=== PATIENT | female | born 1960 ===

== ENCOUNTER 2022-03-15 21:16 | Inpatient (IN) ==
[2022-03-15] MEDS ORDERED: IPRATROPIUM/ALBUTEROL 3 ML AMPUL.NEB NEB ONE (23:38)
[2022-03-15] MEDS ORDERED: ALBUTEROL SULFATE 2.5 MG/3 ML NEBULIZER ONE (23:39)
[2022-03-16] MEDS ORDERED: MAGNESIUM SULFATE 2 GM/50 ML BAG IV ONE ×2 (00:01→00:03)
[2022-03-16] MEDS ORDERED: ALBUTEROL SULFATE 2.5 MG/3 ML NEBULIZER ONE (00:02)
[2022-03-16] MEDS ORDERED: ALBUTEROL SULFATE 2.5 MG/3 ML NEBULIZER NEB PRN (00:02)
[2022-03-16] MEDS ORDERED: oxyCODONE HCL 5 MG TABLET PO PRN (00:14)
[2022-03-16] MEDS ORDERED: HYDROmorphone 0.5 MG/0.5 ML SYRINGE IV PRN (00:14)
--- NOTE | 2022-03-16 00:31 | Internal Med History&Physical ---
HPI History of Present Illness Patient information: Note initiated : 03/16/22 at 12:31 am Service Date, if different from initiated Date: [] Patient: Yane Segura 61 y/o F admitted on 03/15/22 for COPD Exacerbation. Chief Complaint: [] History of present illness: Ms. Segura is a 61 year old F History of COPD on oxygen at baseline on 3 L, presented to an outside Medical Center in [place] for evaluation of shortness of breath. The patient has not been feeling well for 1 and half weeks, she was seen by her primary provider on 08 March, she was diagnosed with influenza and was given Tamiflu, she notes she completed a 5-day course of Tamiflu, however the medication made her feel a bit off. She noted a symptoms of shortness of breath and cough did not improve, and therefore she was seen in the ED at date and the , at that time she was on 3 to 4 L of oxygen, her symptoms however gradually got worse, her oxygen requirements increased, Patient was eventually requiring BiPAP therapy with increasing oxygen needs. The patient does have history of intubation in the past because of severe COPD exacerbation, given the facility did not have ability to manage BiPAP at night, or mechanically ventilated patient reached out to this facility for transfer. At the time of my evaluation patient was on BiPAP, but she was able to answer questions appropriately, denied any chest pain or chest tightness, admit to having some cough as well as shortness of breath,She denied any nausea vomiting or any bowel or bladder issues. The patient is being admitted to the hospital for further management. Past medical history, history of COPD on oxygen, restless leg syndrome, stress urinary incontinence, osteoporosis, GERD, anxiety and depression.History of GABRIELLE Past surgical history, history of appendectomy, Family history- History of [place] Social history -Smoker, social occasional marijuana denies alcohol Review of Systems Review of systems: CONSTITUTIONAL: No weight loss, fever, chills, weakness or fatigue. HEENT: Eyes: No visual loss, blurred vision, double vision or yellow sclerae. Ears, Nose, Throat: No hearing loss, sneezing, congestion, runny nose or sore throat. SKIN: No rash or itching. CARDIOVASCULAR: No chest pain, chest pressure or chest discomfort. No palpitations or edema. RESPIRATORY: Shortness of breath, cough present GASTROINTESTINAL: No nausea, vomiting or diarrhea or constipation. No abdominal pain or blood in stools No Lynda. GENITOURINARY: Denies Burning on urination. Blood in urine, or foul smelling urine NEUROLOGICAL: No headache, dizziness, syncope, paralysis, tremors, numbness or tingling in the extremities. No change in bowel or bladder control. MUSCULOSKELETAL: No muscle, back pain, joint pain or stiffness. HEMATOLOGIC: No bleeding or bruising. No enlarged nodes PSYCHIATRIC: No depression or anxiety. ENDOCRINOLOGIC: No reports of sweating, cold or heat intolerance. No polyuria or polydipsia. ALLERGIES: No hives, eczema or rhinitis. Skin: No rash, no jaundice, cyanosis or pallor. PFSH [facility] Social History smoking status: Former smoker MEDS/ALLERGIES Home Medications and Allergies Home Medications Medication Instructions Recorded Confirmed Type albuterol sulfate 90 mcg/actuation 2 puff inhalation Q4HP PRN dyspnea 03/16/22 03/16/22 History aerosol inhaler aspirin 81 mg chewable tablet 1 tab PO QDAY 03/16/22 03/16/22 History azithromycin 500 mg tablet 1 tab PO 3XW 03/16/22 03/16/22 History budesonide 0.25 mg/2 mL suspension 0.25 mg inhalation BID 03/16/22 03/16/22 History for nebulization hydroxyzine HCl 25 mg tablet 1 tab PO BIDP PRN Anxiety 03/16/22 03/16/22 History ipratropium 0.5 mg-albuterol 3 mg 1 amp inhalation QID 03/16/22 03/16/22 History (2.5 mg base)/3 mL nebulization soln mirtazapine 15 mg tablet 1 tab PO HS 03/16/22 03/16/22 History oxybutynin chloride 5 mg tablet 1 tab PO TID 03/16/22 03/16/22 History Allergies Allergy/AdvReac Type Severity Reaction Status Date / Time Tetracyclines Allergy Mild Hives Verified 03/16/22 00:12 EXAM Constitutional Vitals: Pulse Resp Pulse Ox O2 Del Method 119 H 24 H 93 03/16/22 00:04 03/16/22 00:04 03/16/22 00:04 03/16/22 00:04 Exam: GENERAL: The patient is a well-developed, well-nourished in no apparent dist ress. Is alert and oriented x3. on bipap VITAL SIGNS: Reviewed and as noted elsewhere. HEENT: Head is normocephalic and atraumatic. Extraocular muscles are intact. Pupils are equal, round, and reactive to light. Nares appeared normal. Mouth appears any without lesions. Mucous membranes are moist. NECK: Normal to inspection, Supple, No lymphadenopathy or thyromegaly. LUNGS: Air entry equal on both sides, with significant decrease in air entry, xenia exp wheeze present. HEART: Regular rate , tachycardic and rhythm normal, S1 and S2 heard, no Gallop, S3 or Rub Noted, No Gross murmur heard. ABDOMEN: Soft, nontender, and nondistended. Positive bowel sounds. No hepatosplenomegaly was noted. EXTREMITIES: No cyanosis, clubbing, rash, lesions or edema. NEUROLOGIC: Cranial nerves II through XII are grossly intact. Motor and Sensory System Grossly Intact PSYCHIATRIC: Normal affect, Normal Mood. Appropriate Behavior. SKIN: No ulceration or wounds noted, No jaundice, No rash noted. DATA Data Completed and Pending Labs: Labs from last 24 hours 03/16/22 03/16/22 03/16/22 00:21 00:21 00:21 WBC Pending RBC Pending Hgb Pending Hct Pending MCV Pending MCH Pending MCHC Pending RDW Pending Plt Count Pending MPV Pending Immature Gran % (Auto) Pending Neut % (Auto) Pending Immature Gran # Pending D-Dimer Pending Sodium Pending Potassium Pending Chloride Pending Carbon Dioxide Pending Anion Gap Pending BUN Pending Creatinine Pending GFR Calculation Pending Glucose Pending Calcium Pending Total Bilirubin Pending AST Pending ALT Pending Alkaline Phosphatase Pending NT-Pro-B Natriuret Pep Pending Total Protein Pending Albumin Pending Globulin Pending Albumin/Globulin Ratio Pending Laboratory Tests 03/16/22 03/16/22 03/16/22 00:28 02:07 02:08 WBC 3.8 L Hgb 12.0 Plt Count 261 D-Dimer 0.94 H POC VBG pH 7.57 H POC VBG pCO2 at Temp 44.3 POC VBG pO2 167 H Sodium Carbon Dioxide Creatinine NT-Pro-B Natriuret Pep 03/16/22 02:08 WBC Hgb Plt Count D-Dimer POC VBG pH POC VBG pCO2 at Temp POC VBG pO2 Sodium 145 Carbon Dioxide 37 H Creatinine 0.5 L NT-Pro-B Natriuret Pep 3543.0 H flu/ rsv/covid is negative, mrsa screen is negative. X ray official read pending, A/P Narrative A/P Narrative: Acute hypoxic and hypercapenic resp failure Acute exacerbation of COPD Post influenza (completed tamiflu, now neg) -on bipap at this time, wean down as tolerated -dimer is 0.93, X ray shows some sarrring on the left upper lobe, check CTA r/o PE, -continue iv steroids, duonebs, IV mag, antibiotis (rocephin/doxy) budesonide nebs -if resp condition worsens will intubate the patient. CHF exacerbation ElevateD BNP -not clear if pt has CHF, does not look very volume up -will give one dose of lasix -check echo GABRIELLE -she appears to be a chr co2 retainer 0contine cpap at night once off bipap - Stress Urinary Incontinnece -on oxybutynin, resume GERD -on ppi, continue for now Time Spent With Patient Time: Total time spent is greater than 50% in coordination of care (as documented) at patient's floor/unit and/or counseling patient:
[2022-03-16] MEDS ORDERED: cefTRIAXone 1 GM VIAL ONE (00:39)
[2022-03-16] MEDS ORDERED: LORazepam 2 MG/ML VIAL ONE (00:49)
[2022-03-16] MEDS: LORazepam 2 MG/ML VIAL IV PRN ×2 (00:53→15:02)
[2022-03-16] MEDS: cefTRIAXone 2 GM in DEXTROSE 5% IN WATER 50 ML IV SCH ×2 (00:53→16:10)
[2022-03-16] MEDS ORDERED: IPRATROPIUM/ALBUTEROL 3 ML AMPUL.NEB NEB ONE (02:25)
[2022-03-16] MEDS: IPRATROPIUM/ALBUTEROL 3 ML AMPUL.NEB NEB SCH ×4 (03:01→15:27)
[2022-03-16 03:08] LABS: Basophils # (Auto) 0 K/mcL (0.00-0.30); Basophils % (Auto) 0 % (0.0-2.0); Eosinophils # (Auto) 0 K/mcL (0.00-0.70); Eosinophils % (Auto) 0 % (0.0-7.0); Hematocrit 37.1 % (34.1-44.9); Lymphocytes # (Auto) 0.38 K/mcL (1.50-4.80); Lymphocytes % (Auto) 9.9 % (15.5-49.0); Mean Cell Volume 91.6 fL (80.0-100.0); Mean Corpuscular HGB Conc 32.3 g/dL (31.0-36.0); Mean Platelet Volume 10.3 fL (8.8-12.5); Monocytes # (Auto) 0.23 K/mcL (0.10-0.90); Neutrophils % (Auto) 82.3 % (38.0-78.0); Platelet Count 261 K/mcL (140-440); RBC 4.05 M/mcL (3.59-5.38); Red Cell Distribution Width 13.5 % (11.5-14.5); WBC 3.8 K/mcL (4.5-11.0)
[2022-03-16 03:34] LABS: ALT/SGPT 10 U/L (<40); AST/SGOT 11 U/L (<32); Albumin 2.8 gm/dL (3.2-5.2); Albumin/Globulin Ratio 0.8 (1.0-2.3); Alkaline Phosphatase 67 U/L (39-117); Bilirubin,Total < 0.2 mg/dL (0.1-1.0); Blood Urea Nitrogen 18 mg/dL (8-23); Calcium 9.1 mg/dL (8.6-10.4); Carbon Dioxide 37 mmol/L (22-30); Chloride 103 mmol/L (96-108); Globulin 3.4 gm/dL (2.2-3.7); Glomerular Filtration Rate 103; Glucose 146 mg/dL (70-105)
[2022-03-16] MEDS ORDERED: methylPREDNISolone SOD SUCC 40 MG/ML VIAL IV ONE (05:50)
[2022-03-16] MEDS: 0.9 % SODIUM CHLORIDE 10 ML SYRINGE IV SCH ×4 (05:52→23:24)
[2022-03-16] MEDS: methylPREDNISolone SOD SUCC 40 MG/ML VIAL IV SCH ×4 (05:52→23:24)
[2022-03-16] MEDS ORDERED: FUROSEMIDE 40 MG/4 ML VIAL IV ONE (06:47)
[2022-03-16] MEDS: PANTOPRAZOLE 40 MG TABLET PO SCH ×3 (07:14→14:48)
[2022-03-16] MEDS ORDERED: IOPAMIDOL 100 ML BOTTLE IV ONE (07:48)
[2022-03-16] MEDS: BUDESONIDE 0.5 MG/2 ML AMPUL.NEB NEB SCH ×3 (07:48→19:57)
[2022-03-16] MEDS: ASPIRIN 81 MG TAB.CHEW PO SCH ×2 (08:20→14:49)
[2022-03-16] MEDS: DOCUSATE SODIUM 100 MG CAPSULE PO SCH ×3 (08:20→20:29)
[2022-03-16] MEDS: OXYBUTYNIN CHLORIDE 5 MG TABLET PO SCH ×3 (08:20→20:29)
--- NOTE | 2022-03-16 08:43 | Cat Scan Report ---
History: Exacerbation of COPD TECHNIQUE: Following injection of intravenous nonionic contrast the chest was imaged during the pulmonary arterial phase from above the thoracic inlet through the diaphragm. Sagittal and coronal reformats were created along with axial and coronal MIPS. Radiation exposure was limited using dose reduction technology. FINDINGS: Severe emphysema is present throughout both lungs. There is also bronchitis with bronchial wall thickening. In the posterior segment of the left upper lobe there is an ill-defined zone of peripheral consolidation with multiple air bronchograms. There is volume loss and upper retraction of left hilum. Laterally in the left upper lobe there is a large bleb with surrounding scar tissue. The consolidation and inflammation have improved significantly since the prior CT done on 08/16/21. No mass is detected. The pulmonary arteries are normal without evidence of emboli. The heart is normal in size and contour. The aorta is normal in caliber. There are few scattered plaques along the wall of the aorta and in a few of the coronary arteries. No enlarged lymph nodes are present. There is no pleural effusion. There are high attenuation round nodules laterally in the left kidney which are probably cysts containing blood products or proteinaceous debris. The kidneys are only partially visualized. IMPRESSION: Severe emphysema Moderate amount of scar tissue posteriorly and laterally in the left upper lobe causing upward retraction of the left hilum. This has improved. Superimposed residual inflammation cannot be excluded. Bronchitis No evidence of pulmonary emboli Moderate fibrosis causing upward retraction Interpreted and Authenticated by: Yuniel Lombardo 03/16/22
--- NOTE | 2022-03-16 08:52 | XRay Report ---
HISTORY: Exacerbation of COPD, shortness of breath FINDINGS: Patient has severe emphysema with hyperinflated lungs. There is a moderate size spiculated scar centrally in the left upper lobe causing upper and lateral retraction of left hilum. Adjacent to this is mild pleural thickening. There is a chronic finding with little change since 03/14/22. Heart size is normal. There is no congestive heart failure or pleural effusion. IMPRESSION: Stable severe emphysema and scarring in the left upper thorax Interpreted and Authenticated by: Yuniel Lombardo 03/16/22
[2022-03-16] MEDS ORDERED: DOXYCYCLINE HYCLATE 100 MG TABLET.ORL PO SCH (09:00)
[2022-03-16] MEDS: ENOXAPARIN 40 MG/0.4 ML SYRINGE SQ SCH (09:07)
[2022-03-16] MEDS ORDERED: AZITHROMYCIN 500 MG in DEXTROSE 5% IN WATER 250 ML IV SCH (10:00)
[2022-03-16] MEDS: LEVOFLOXACIN 750 MG/150 ML BAG IV SCH (14:35)
[2022-03-16] MEDS: LEVALBUTEROL 1.25 MG/3 ML AMPUL.NEB NEB SCH ×2 (18:07→23:29)
[2022-03-16] MEDS: MIRTAZAPINE 15 MG TABLET PO SCH (20:29)
[2022-03-16] MEDS: SENNOSIDES 1 TABLET PO SCH (20:30)
[2022-03-17] MEDS: 0.9 % SODIUM CHLORIDE 10 ML SYRINGE IV SCH ×3 (05:11→23:34)
[2022-03-17] MEDS: methylPREDNISolone SOD SUCC 40 MG/ML VIAL IV SCH ×3 (05:11→17:39)
[2022-03-17] MEDS: PANTOPRAZOLE 40 MG TABLET PO SCH (07:04)
[2022-03-17 08:02] LABS: Basophils # (Auto) 0 K/mcL (0.00-0.30); Basophils % (Auto) 0 % (0.0-2.0); Eosinophils # (Auto) 0 K/mcL (0.00-0.70); Eosinophils % (Auto) 0 % (0.0-7.0); Hematocrit 36.9 % (34.1-44.9); Hemoglobin 12.1 g/dL (11.2-15.7); Lymphocytes # (Auto) 0.33 K/mcL (1.50-4.80); Lymphocytes % (Auto) 9.5 % (15.5-49.0); Mean Corpuscular HGB Conc 32.8 g/dL (31.0-36.0); Mean Platelet Volume 10.3 fL (8.8-12.5); Monocytes # (Auto) 0.35 K/mcL (0.10-0.90); Neutrophils % (Auto) 79.1 % (38.0-78.0); Platelet Count 281 K/mcL (140-440); Red Cell Distribution Width 13.4 % (11.5-14.5); WBC 3.5 K/mcL (4.5-11.0)
[2022-03-17] MEDS: LEVALBUTEROL 1.25 MG/3 ML AMPUL.NEB NEB SCH ×5 (08:03→23:30)
[2022-03-17] MEDS: BUDESONIDE 0.5 MG/2 ML AMPUL.NEB NEB SCH ×3 (08:03→21:35)
[2022-03-17 08:36] LABS: ALT/SGPT 11 U/L (<40); AST/SGOT 10 U/L (<32); Albumin 3.2 gm/dL (3.2-5.2); Albumin/Globulin Ratio 1.1 (1.0-2.3); Alkaline Phosphatase 64 U/L (39-117); Bilirubin,Direct < 0.2 mg/dL (0-0.3); Bilirubin,Total 0.2 mg/dL (0.1-1.0); Blood Urea Nitrogen 26 mg/dL (8-23); Calcium 9.3 mg/dL (8.6-10.4); Carbon Dioxide 42 mmol/L (22-30); Chloride 95 mmol/L (96-108); Globulin 2.9 gm/dL (2.2-3.7); Glomerular Filtration Rate 97; Glucose 125 mg/dL (70-105); Lactate Dehydrogenase 159 U/L (135-225); Phosphorous 2.8 mg/dL (2.5-4.5); Triglycerides 108 mg/dL (<150); Uric Acid 3.6 mg/dL (2.5-8.0)
[2022-03-17] MEDS: DOCUSATE SODIUM 100 MG CAPSULE PO SCH ×2 (08:57→20:59)
[2022-03-17] MEDS: ASPIRIN 81 MG TAB.CHEW PO SCH (08:57)
[2022-03-17] MEDS: cefTRIAXone 2 GM in DEXTROSE 5% IN WATER 50 ML IV SCH (08:57)
[2022-03-17] MEDS: ENOXAPARIN 40 MG/0.4 ML SYRINGE SQ SCH (08:57)
[2022-03-17] MEDS: OXYBUTYNIN CHLORIDE 5 MG TABLET PO SCH ×3 (08:57→20:59)
[2022-03-17] MEDS: LEVOFLOXACIN 750 MG/150 ML BAG IV SCH (09:39)
[2022-03-17] MEDS: LORazepam 2 MG/ML VIAL IV PRN ×2 (11:57→18:50)
[2022-03-17] MEDS ORDERED: 0.9 % SODIUM CHLORIDE 500 ML IV ONE (14:15)
--- NOTE | 2022-03-17 15:50 | Internal Med Progress Note ---
SUBJECTIVE Subjective Patient information: Note initiated : 03/17/22 at 3:45 pm Service Date, if different from initiated Date: [] Patient: Yane Segura 61 y/o F admitted on 03/15/22 for COPD Exacerbation. Chief Complaint: [] Interval history: 03/17 Respiratory status improved, the patient was on heated high flow nasal cannula overnight. Continues to have sinus tachycardia today, no cause of tachycardia identified. Low normal blood pressures so will give a IV fluid bolus to see if tachycardia improves with some fluid. Physical exam Head: Atraumatic, normal inspection. Eyes: normal appearance, no scleral icterus. Neck: full ROM Respiratory: Heated and humidified high flow nasal cannula oxygen, accessory muscle use, no wheezing Cardiovascular: Regular tachycardia, S1, S2. GI/Abdominal: soft, nontender, no guarding. Extremities: full range of motion, nontender. Neurological: CN II-XII intact, intact motor, intact sensation. Psychiatric: normal mood. Skin: warm, normal color Constitutional Vitals: Vital Signs Temp Pulse Resp BP Pulse Ox O2 Del Method O2 Flow Rate 97.7 F 117 H 18 103/71 95 15 03/17/22 12:01 03/17/22 14:00 03/17/22 14:00 03/17/22 14:00 03/17/22 14:00 03/17/22 12:20 03/17/22 12:20 Period Temp Pulse Resp BP Sys/Pereira Pulse Ox O2 Del Method O2 Flow Rate Last 24 Hr 97.0 F-98.2 F 94-142 13-29 90-127/58-82 90-98 BiPAP-High Flow Nasal Cannula 10-15 Intake and Output 03/17/22 03/17/22 03/17/22 03:59 11:59 19:59 Intake Total 200 450 240 Output Total 375 500 Balance 200 75 -260 Weight 65.317 kg 65.317 kg Patient Weight 03/18/22 03:59 Weight 65.317 kg Intake & Output: Intake & Output 03/17/22 03/17/22 03/17/22 03:59 11:59 19:59 Intake Total 200 450 240 Output Total 375 500 Balance 200 75 -260 Weight 65.317 kg 65.317 kg Intake: Nourishment/Supplement quantity 200 (ml) IV 200 Rocephin 2 gm In Dextrose 5% in 50 Water 50 ml @ 100 mls/hr IV Q24H [facility] Rx#:[id number] Oral 250 240 Output: Urine Catheter Amount 375 500 Other: Meal Nourishment/Supplement Nourishment/Supplement name enusre Urine Appearance Clear Clear Uretheral ([place]) Clear Clear Urine Color Yellow Bright Yellow Uretheral ([place]) Bright Yellow Yellow Urine Odor Normal Normal Uretheral ([place]) Normal OBJ DATA Labs CBC & Chem 7: 03/17/22 07:38 03/17/22 07:38 Labs: Abnormal Lab Results 03/17/22 03/17/22 03/17/22 07:38 07:38 07:38 WBC 3.5 L Immature Gran % (Auto) 1.4 H Neut % (Auto) 79.1 H Lymph % (Auto) 9.5 L Lymph # (Auto) 0.33 L Immature Gran # D-Dimer POC VBG pH 7.51 H POC VBG pCO2 at Temp 59.5 H POC VBG pO2 69 H POC VBG HCO3 47.6 H* POC VBG Total CO2 49.0 H* POC Venous O2 Sat 94.0 H POC VBG Base Excess 25.0 H* VBG Lactic Acid 0.4 L Chloride 95 L Carbon Dioxide 42 H* Anion Gap 4.0 L BUN 26 H Creatinine Glucose 125 H NT-Pro-B Natriuret Pep Albumin Albumin/Globulin Ratio 03/16/22 03/16/22 03/16/22 11:11 02:08 02:08 WBC Immature Gran % (Auto) Neut % (Auto) Lymph % (Auto) Lymph # (Auto) Immature Gran # D-Dimer 0.94 H POC VBG pH POC VBG pCO2 at Temp 83.9 H* POC VBG pO2 POC VBG HCO3 52.8 H* POC VBG Total CO2 > 50.0 H* POC Venous O2 Sat POC VBG Base Excess 28.0 H* VBG Lactic Acid Chloride Carbon Dioxide 37 H Anion Gap 5.0 L BUN Creatinine 0.5 L Glucose 146 H NT-Pro-B Natriuret Pep 3543.0 H Albumin 2.8 L Albumin/Globulin Ratio 0.8 L 03/16/22 03/16/22 02:07 00:28 WBC 3.8 L Immature Gran % (Auto) 1.8 H Neut % (Auto) 82.3 H Lymph % (Auto) 9.9 L Lymph # (Auto) 0.38 L Immature Gran # 0.07 H D-Dimer POC VBG pH 7.57 H POC VBG pCO2 at Temp POC VBG pO2 167 H POC VBG HCO3 40.9 H* POC VBG Total CO2 42.0 H* POC Venous O2 Sat 100.0 H POC VBG Base Excess 19.0 H* VBG Lactic Acid Chloride Carbon Dioxide Anion Gap BUN Creatinine Glucose NT-Pro-B Natriuret Pep Albumin Albumin/Globulin Ratio Meds: Medications Acetaminophen (Acetaminophen 325 Mg Tablet) 650 mg PO Q6HP PRN; Protocol PRN Reason: Per Pain Protocol/Fever > 101 Albuterol Sulfate (Albuterol Sulfate 2.5 Mg/3 Ml Nebulizer) 2.5 mg NEB Q2HP PRN PRN Reason: Shortness Of Breath Or Wheezing Aspirin (Aspirin 81 Mg Tab.Chew) 81 mg PO DAILY [facility] Last Admin: 03/17/22 08:57 Dose: 81 mg Budesonide (Budesonide 0.5 Mg/2 Ml Ampul.Neb) 0.5 mg NEB Q12 [facility] Last Admin: 03/17/22 08:03 Dose: 0.5 mg Docusate Sodium (Docusate Sodium 100 Mg Capsule) 100 mg PO BID [facility] Last Admin: 03/17/22 08:57 Dose: 100 mg Enoxaparin Sodium (Enoxaparin 40 Mg/0.4 Ml Syringe) 40 mg SQ DAILY [facility] Last Admin: 03/17/22 08:57 Dose: 40 mg Hydromorphone HCl (Hydromorphone 0.5 Mg/0.5 Ml Syringe) 0.5 mg IV Q2HP PRN; Protocol PRN Reason: Per Pain Protocol Hydroxyzine HCl (Hydroxyzine 25 Mg Tablet) 25 mg PO BIDP PRN PRN Reason: Anxiety Levofloxacin (Levaquin) 750 mg in 150 mls @ 100 mls/hr IV Q24H [facility] Stop: 03/20/22 11:29 Last Infusion: 03/17/22 11:10 Dose: Infused Levalbuterol HCl (Levalbuterol 1.25 Mg/3 Ml Ampul.Neb) 1.25 mg NEB [id number] [facility] Last Admin: 03/17/22 15:42 Dose: 1.25 mg Lorazepam (Lorazepam 2 Mg/Ml Vial) 0.5 mg IV Q4HP PRN PRN Reason: ANXIETY/SEDATION Last Admin: 03/17/22 11:57 Dose: 0.5 mg Methylprednisolone Sodium Succinate (Methylprednisolone Sod Succ 40 Mg/Ml Vial) 40 mg IV Q6 [facility] Last Admin: 03/17/22 11:57 Dose: 40 mg Mirtazapine (Mirtazapine 15 Mg Tablet) 15 mg PO HS [facility] Last Admin: 03/16/22 20:29 Dose: 15 mg Ondansetron HCl (Ondansetron 4 Mg/2 Ml Vial) 4 mg IV Q6HP PRN PRN Reason: Nausea And Vomiting Oxybutynin Chloride (Oxybutynin Chloride 5 Mg Tablet) 5 mg PO TID [facility] Last Admin: 03/17/22 15:29 Dose: 5 mg Oxycodone HCl (Oxycodone Hcl 5 Mg Tablet) 5 mg PO Q4HP PRN; Protocol PRN Reason: Per Pain Protocol Pantoprazole Sodium (Pantoprazole 40 Mg Tablet) 40 mg PO QAMAC [facility] Last Admin: 03/17/22 07:04 Dose: 40 mg Senna (Sennosides 1 Tablet) 2 tab PO HS [facility] Last Admin: 03/16/22 20:30 Dose: 2 tab Sodium Chloride (0.9 % Sodium Chloride 10 Ml Syringe) 10 ml IV Q8 [facility] Last Admin: 03/17/22 15:31 Dose: 10 ml Trazodone HCl (Trazodone Hcl 50 Mg Tablet) 50 mg PO HSP PRN PRN Reason: Insomnia A/P Narrative A/P Narrative: Acute hypoxic and hypercapnic resp failure Acute exacerbation of COPD Post influenza (completed tamiflu, now neg) -Clinically improved since admission. -High flow nasal cannula during daytime, CPAP at bedtime. -CTA chest did not show any evidence of PE. -continue iv steroids, duonebs, IV mag, antibiotis (rocephin/doxy) budesonide nebs Sinus tachycardia -Patient says she has had tachycardia in the past -No evidence of PE, no evidence of systolic or diastolic dysfunction on TTE. -IV fluid 500 mL NS bolus challenge, monitor heart rate. GABRIELLE -she appears to be a chr co2 retainer -CPAP at bedtime Stress Urinary Incontinnece -on oxybutynin GERD -on ppi, continue for now Time Spent With Patient Time: Total time spent is greater than 50% in coordination of care (as documented) at patient's floor/unit and/or counseling patient:
[2022-03-17] MEDS: ONDANSETRON 4 MG/2 ML VIAL IV PRN (18:44)
[2022-03-17] MEDS: SENNOSIDES 1 TABLET PO SCH (20:58)
[2022-03-17] MEDS: MIRTAZAPINE 15 MG TABLET PO SCH (20:59)
[2022-03-18] MEDS: methylPREDNISolone SOD SUCC 40 MG/ML VIAL IV SCH ×3 (00:52→12:20)
[2022-03-18] MEDS: 0.9 % SODIUM CHLORIDE 10 ML SYRINGE IV SCH ×3 (05:35→21:38)
[2022-03-18] MEDS: BUDESONIDE 0.5 MG/2 ML AMPUL.NEB NEB SCH ×2 (07:06→19:15)
[2022-03-18] MEDS: LEVALBUTEROL 1.25 MG/3 ML AMPUL.NEB NEB SCH ×5 (07:06→23:15)
[2022-03-18] MEDS: ASPIRIN 81 MG TAB.CHEW PO SCH (09:01)
[2022-03-18] MEDS: OXYBUTYNIN CHLORIDE 5 MG TABLET PO SCH ×3 (09:01→21:37)
[2022-03-18] MEDS: ENOXAPARIN 40 MG/0.4 ML SYRINGE SQ SCH (09:01)
[2022-03-18] MEDS: DOCUSATE SODIUM 100 MG CAPSULE PO SCH ×2 (09:02→21:38)
[2022-03-18] MEDS: hydrOXYzine 25 MG TABLET PO PRN (09:17)
[2022-03-18] MEDS: PANTOPRAZOLE 40 MG TABLET PO SCH (09:17)
[2022-03-18] MEDS: LEVOFLOXACIN 750 MG/150 ML BAG IV SCH (09:48)
[2022-03-18] MEDS ORDERED: 0.9 % SODIUM CHLORIDE 1,000 ML IV ONE (11:59)
[2022-03-18 13:59] LABS: Anion Gap 0 (8.0-16.0); Blood Urea Nitrogen 28 mg/dL (8-23); Calcium 8.4 mg/dL (8.6-10.4); Carbon Dioxide 44 mmol/L (22-30); Chloride 97 mmol/L (96-108); Glomerular Filtration Rate 110; Glucose 105 mg/dL (70-105); Phosphorous 2.5 mg/dL (2.5-4.5)
--- NOTE | 2022-03-18 15:09 | Internal Med Progress Note ---
SUBJECTIVE Subjective Patient information: Note initiated : 03/18/22 at 3:02 pm Service Date, if different from initiated Date: [] Patient: Yane Segura 61 y/o F admitted on 03/15/22 for COPD Exacerbation. Chief Complaint: [] Interval history: 03/17 Respiratory status improved, the patient was on heated high flow nasal cannula overnight. Continues to have sinus tachycardia today, no cause of tachycardia identified. Low normal blood pressures so will give a IV fluid bolus to see if tachycardia improves with some fluid. 03/18 Heart rate continues to be elevated, did improve yesterday with a 500 mL bolus so ordered a 1 mL bolus today. Serum bicarbonate level trending up, will check a VBG. The patient has been on heated high flow nasal cannula most of the time. Appears comfortable. Transition to prednisone, discontinued IV Solu-Medrol. Physical exam Head: Atraumatic, normal inspection. Eyes: normal appearance, no scleral icterus. Neck: full ROM Respiratory: Heated and humidified high flow nasal cannula oxygen, accessory muscle use, no wheezing Cardiovascular: Regular tachycardia, S1, S2. GI/Abdominal: soft, nontender, no guarding. Extremities: full range of motion, nontender. Neurological: CN II-XII intact, intact motor, intact sensation. Psychiatric: normal mood. Skin: warm, normal color Constitutional Vitals: Vital Signs Temp Pulse Resp BP Pulse Ox O2 Del Method O2 Flow Rate 98.4 F 107 H 18 99/61 98 25 03/18/22 12:00 03/18/22 13:00 03/18/22 14:01 03/18/22 14:01 03/18/22 13:00 03/18/22 14:00 03/18/22 08:16 Period Temp Pulse Resp BP Sys/Pereira Pulse Ox O2 Del Method O2 Flow Rate Last 24 Hr 97.2 F-99 F 94-144 15-30 81-114/55-78 91-98 BiPAP-Heated High Flow Nasal Ca 15-25 Intake and Output 03/18/22 03/18/22 03/18/22 03:59 11:59 19:59 Intake Total 450 1000 Output Total 600 Balance -150 1000 Weight 64.637 kg Intake & Output: Intake & Output 03/18/22 03/18/22 03/18/22 03:59 11:59 19:59 Intake Total 450 1000 Output Total 600 Balance -150 1000 Weight 64.637 kg Intake: IV 150 1000 Sodium Chloride 0.9% 1,000 ml @ 1000 Wide Open IV BOLUS ONE Rx#: [id number] Oral 300 Output: Urine Catheter Amount 600 Other: Meal Breakfast Percent of Meal Consumed 50% Feeding Ability Assist with Tray Set Up Urine Appearance Clear Uretheral ([place]) Clear Urine Color Bright Yellow Uretheral ([place]) Yellow OBJ DATA Labs CBC & Chem 7: 03/17/22 07:38 03/18/22 12:35 Labs: Abnormal Lab Results 03/18/22 03/17/22 03/17/22 12:35 07:38 07:38 WBC 3.5 L Immature Gran % (Auto) 1.4 H Neut % (Auto) 79.1 H Lymph % (Auto) 9.5 L Lymph # (Auto) 0.33 L Immature Gran # D-Dimer POC VBG pH 7.51 H POC VBG pCO2 at Temp 59.5 H POC VBG pO2 69 H POC VBG HCO3 47.6 H* POC VBG Total CO2 49.0 H* POC Venous O2 Sat 94.0 H POC VBG Base Excess 25.0 H* VBG Lactic Acid 0.4 L Chloride Carbon Dioxide 44 H* Anion Gap 0 L BUN 28 H Creatinine 0.4 L Glucose Calcium 8.4 L NT-Pro-B Natriuret Pep Albumin 3.0 L Albumin/Globulin Ratio 03/17/22 03/16/22 03/16/22 07:38 11:11 02:08 WBC Immature Gran % (Auto) Neut % (Auto) Lymph % (Auto) Lymph # (Auto) Immature Gran # D-Dimer POC VBG pH POC VBG pCO2 at Temp 83.9 H* POC VBG pO2 POC VBG HCO3 52.8 H* POC VBG Total CO2 > 50.0 H* POC Venous O2 Sat POC VBG Base Excess 28.0 H* VBG Lactic Acid Chloride 95 L Carbon Dioxide 42 H* 37 H Anion Gap 4.0 L 5.0 L BUN 26 H Creatinine 0.5 L Glucose 125 H 146 H Calcium NT-Pro-B Natriuret Pep 3543.0 H Albumin 2.8 L Albumin/Globulin Ratio 0.8 L 03/16/22 03/16/22 03/16/22 02:08 02:07 00:28 WBC 3.8 L Immature Gran % (Auto) 1.8 H Neut % (Auto) 82.3 H Lymph % (Auto) 9.9 L Lymph # (Auto) 0.38 L Immature Gran # 0.07 H D-Dimer 0.94 H POC VBG pH 7.57 H POC VBG pCO2 at Temp POC VBG pO2 167 H POC VBG HCO3 40.9 H* POC VBG Total CO2 42.0 H* POC Venous O2 Sat 100.0 H POC VBG Base Excess 19.0 H* VBG Lactic Acid Chloride Carbon Dioxide Anion Gap BUN Creatinine Glucose Calcium NT-Pro-B Natriuret Pep Albumin Albumin/Globulin Ratio Meds: Medications Acetaminophen (Acetaminophen 325 Mg Tablet) 650 mg PO Q6HP PRN; Protocol PRN Reason: Per Pain Protocol/Fever > 101 Albuterol Sulfate (Albuterol Sulfate 2.5 Mg/3 Ml Nebulizer) 2.5 mg NEB Q2HP PRN PRN Reason: Shortness Of Breath Or Wheezing Aspirin (Aspirin 81 Mg Tab.Chew) 81 mg PO DAILY [facility] Last Admin: 03/18/22 09:01 Dose: 81 mg Budesonide (Budesonide 0.5 Mg/2 Ml Ampul.Neb) 0.5 mg NEB Q12 YASH Last Admin: 03/18/22 07:06 Dose: 0.5 mg Docusate Sodium (Docusate Sodium 100 Mg Capsule) 100 mg PO BID [facility] Last Admin: 03/18/22 09:02 Dose: 100 mg Enoxaparin Sodium (Enoxaparin 40 Mg/0.4 Ml Syringe) 40 mg SQ DAILY [facility] Last Admin: 03/18/22 09:01 Dose: 40 mg Hydromorphone HCl (Hydromorphone 0.5 Mg/0.5 Ml Syringe) 0.5 mg IV Q2HP PRN; Protocol PRN Reason: Per Pain Protocol Hydroxyzine HCl (Hydroxyzine 25 Mg Tablet) 25 mg PO BIDP PRN PRN Reason: Anxiety Last Admin: 03/18/22 09:17 Dose: 25 mg Levofloxacin (Levaquin) 750 mg in 150 mls @ 100 mls/hr IV Q24H [facility] Stop: 03/20/22 11:29 Last Infusion: 03/18/22 11:37 Dose: Infused Levalbuterol HCl (Levalbuterol 1.25 Mg/3 Ml Ampul.Neb) 1.25 mg NEB [id number] [facility] Last Admin: 03/18/22 11:39 Dose: 1.25 mg Lorazepam (Lorazepam 2 Mg/Ml Vial) 0.5 mg IV Q4HP PRN PRN Reason: ANXIETY/SEDATION Last Admin: 03/17/22 18:50 Dose: 0.5 mg Mirtazapine (Mirtazapine 15 Mg Tablet) 15 mg PO [facility] Last Admin: 03/17/22 20:59 Dose: 15 mg Ondansetron HCl (Ondansetron 4 Mg/2 Ml Vial) 4 mg IV Q6HP PRN PRN Reason: Nausea And Vomiting Last Admin: 03/17/22 18:44 Dose: 4 mg Oxybutynin Chloride (Oxybutynin Chloride 5 Mg Tablet) 5 mg PO TID [facility] Last Admin: 03/18/22 13:40 Dose: 5 mg Oxycodone HCl (Oxycodone Hcl 5 Mg Tablet) 5 mg PO Q4HP PRN; Protocol PRN Reason: Per Pain Protocol Last Admin: 03/17/22 20:59 Dose: 5 mg Pantoprazole Sodium (Pantoprazole 40 Mg Tablet) [address] [facility] Last Admin: 03/18/22 09:17 Dose: 40 mg Prednisone (Prednisone 20 Mg Tablet) 40 mg PO [facility] Senna (Sennosides 1 Tablet) 2 tab PO [facility] Last Admin: 03/17/22 20:58 Dose: 2 tab Sodium Chloride (0.9 % Sodium Chloride 10 Ml Syringe) 10 ml IV Q8 [facility] Last Admin: 03/18/22 13:04 Dose: 10 ml Trazodone HCl (Trazodone Hcl 50 Mg Tablet) 50 mg PO HSP PRN PRN Reason: Insomnia A/P Narrative A/P Narrative: Assessment: 61-year-old female with a history of COPD on oxygen, GABRIELLE on CPAP, GERD, stress urinary incontinence who recently had influenza that was treated with Tamiflu directly admitted from an outside Medical Center in [place] for hypoxic and hypercapnic respiratory failure secondary to a COPD exacerbation. CTA chest showed severe emphysematous changes, no PE. TTE showed LVEF 55 to 60%, normal right ventricular size and function, no valvulopathy. #Acute on chronic hypoxic respiratory failure #Acute on chronic hypercapnic respiratory failure #COPD exacerbation with severe COPD at baseline #Recent influenza infection #Sinus tachycardia #Obstructive sleep apnea on CPAP #GERD #Stress urinary incontinence #Generalized weakness Plan -Start prednisone 40 mg daily, discontinue Solu-Medrol IV. -Scheduled Xopenex, as needed albuterol nebs. -Monitor venous blood gas periodically until medically stable for recurrent CO2 retention. -Levofloxacin IV, complete 5 days. -Completed Tamiflu treatment. -IV fluid today. -Ativan IV as needed for anxiety. -Continue home aspirin, Remeron, oxybutynin. -pvc monitor, continuous pulse oximetry. -Regular diet. -PT and OT consult. -DVT prophylaxis: Lovenox -CODE STATUS: Full -Disposition: Probably low intensity rehab. Time Spent With Patient Time: Total time spent is greater than 50% in coordination of care (as documented) at patient's floor/unit and/or counseling patient:
[2022-03-18 16:13] LABS: ABG Methemoglobin 0.4 % (0.4-1.5); Total Hemoglobin 13.4 gm/Dl (12.0-15.0); VBG Base Excess 10 (-2-3); VBG HCO3 38.1 mmol/L (24.0-28.0); VBG Oxygen Saturation 93.9 % (40.0-70.0); VBG PCO2 68.9 mmHg (41.0-51.0); VBG PH 7.36 U (7.32-7.42); VBG PO2 149.5 mmHg (25.0-40.0); VBG Total CO2 40.3 mmol/L (25.0-29.0)
[2022-03-18] MEDS: MIRTAZAPINE 15 MG TABLET PO SCH (21:37)
[2022-03-18] MEDS: SENNOSIDES 1 TABLET PO SCH (21:38)
[2022-03-19] MEDS ORDERED: fentaNYL 100 MCG/2 ML VIAL IV ONE (00:15)
[2022-03-19] MEDS: 0.9 % SODIUM CHLORIDE 10 ML SYRINGE IV SCH ×3 (05:52→21:18)
[2022-03-19] MEDS: LEVALBUTEROL 1.25 MG/3 ML AMPUL.NEB NEB SCH ×5 (07:05→22:45)
[2022-03-19] MEDS: BUDESONIDE 0.5 MG/2 ML AMPUL.NEB NEB SCH ×2 (07:06→19:00)
[2022-03-19 07:30] LABS: Albumin 2.7 gm/dL (3.2-5.2); Blood Urea Nitrogen 20 mg/dL (8-23); Calcium 8.4 mg/dL (8.6-10.4); Carbon Dioxide 44 mmol/L (22-30); Chloride 99 mmol/L (96-108); Glomerular Filtration Rate 110; Glucose 84 mg/dL (70-105)
[2022-03-19] MEDS: ENOXAPARIN 40 MG/0.4 ML SYRINGE SQ SCH (08:02)
[2022-03-19] MEDS: DOCUSATE SODIUM 100 MG CAPSULE PO SCH ×2 (08:03→21:17)
[2022-03-19] MEDS: OXYBUTYNIN CHLORIDE 5 MG TABLET PO SCH ×3 (08:03→21:17)
[2022-03-19] MEDS: ASPIRIN 81 MG TAB.CHEW PO SCH (08:03)
[2022-03-19] MEDS: PANTOPRAZOLE 40 MG TABLET PO SCH (08:03)
[2022-03-19] MEDS: predniSONE 20 MG TABLET PO SCH (08:03)
[2022-03-19] MEDS: hydrOXYzine 25 MG TABLET PO PRN (08:14)
[2022-03-19 09:49] LABS: ABG Methemoglobin 0.3 % (0.4-1.5); Total Hemoglobin 14.2 gm/Dl (12.0-15.0); VBG Base Excess 13 (-2-3); VBG HCO3 40.6 mmol/L (24.0-28.0); VBG Oxygen Saturation 91.7 % (40.0-70.0); VBG PH 7.41 U (7.32-7.42); VBG PO2 112.2 mmHg (25.0-40.0); VBG Total CO2 42.6 mmol/L (25.0-29.0)
[2022-03-19] MEDS: LEVOFLOXACIN 750 MG/150 ML BAG IV SCH (10:41)
[2022-03-19] MEDS: ACETAMINOPHEN 325 MG TABLET PO PRN (12:26)
--- NOTE | 2022-03-19 13:50 | Internal Med Progress Note ---
SUBJECTIVE Subjective Patient information: Note initiated : 03/19/22 at 1:47 pm Service Date, if different from initiated Date: [] Patient: Yane Segura 61 y/o F admitted on 03/15/22 for COPD Exacerbation. Chief Complaint: [] Interval history: 03/17 Respiratory status improved, the patient was on heated high flow nasal cannula overnight. Continues to have sinus tachycardia today, no cause of tachycardia identified. Low normal blood pressures so will give a IV fluid bolus to see if tachycardia improves with some fluid. 03/18 Heart rate continues to be elevated, did improve yesterday with a 500 mL bolus so ordered a 1 mL bolus today. Serum bicarbonate level trending up, will check a VBG. The patient has been on heated high flow nasal cannula most of the time. Appears comfortable. Transition to prednisone, discontinued IV Solu-Medrol. 03/19 No significant events overnight, weaned back to 3 L/min nasal cannula oxygen which is about the patient's baseline oxygen requirement. VBG shows persistently elevated carbon dioxide, will try BiPAP this afternoon for a few hours and see if the patient's energy levels improve with BiPAP. Also transition to BiPAP at night which the patient uses at home. Heart rate in the low 100s. Physical exam Head: Atraumatic, normal inspection. Eyes: normal appearance, no scleral icterus. Neck: full ROM Respiratory: Nasal cannula oxygen supplementation, does not appear to be in respiratory distress. Cardiovascular: Regular tachycardia, S1, S2. GI/Abdominal: soft, nontender, no guarding. Extremities: full range of motion, nontender. Neurological: CN II-XII intact, intact motor, intact sensation. Psychiatric: normal mood. Skin: warm, normal color Constitutional Vitals: Vital Signs Temp Pulse Resp BP Pulse Ox O2 Del Method O2 Flow Rate 98.5 F 106 H 22 118/72 95 3 03/19/22 12:00 03/19/22 12:48 03/19/22 12:48 03/19/22 12:00 03/19/22 12:48 03/19/22 12:00 03/19/22 12:00 Period Temp Pulse Resp BP Sys/Pereira Pulse Ox O2 Del Method O2 Flow Rate Last 24 Hr 97.2 F-98.8 F 85-121 15-24 88-121/57-72 87-96 Heated High Flow Nasal Ca-Nasal Cannula 3-25 Intake and Output 03/19/22 03/19/22 03/19/22 03:59 11:59 19:59 Intake Total 450 640 270 Output Total 913 000 9288 Balance -375 85 930 Weight 65 kg Intake & Output: Intake & Output 03/19/22 03/19/22 03/19/22 03:59 11:59 19:59 Intake Total 450 640 270 Output Total 356 495 7772 Balance -375 85 930 Weight 65 kg Intake: IV 150 Oral 450 640 120 Output: Urine Catheter Amount [phone] Other: Meal Breakfast Lunch Percent of Meal Consumed 100% 50% Feeding Ability Assist with Tray Set Up Independent Urine Appearance Clear Clear Clear Uretheral ([place]) Clear Clear Urine Color Yellow Yellow Pale Bright Yellow Uretheral ([place]) Yellow Yellow Urine Odor Normal Normal Normal OBJ DATA Labs CBC & Chem 7: 03/17/22 07:38 03/19/22 05:19 Labs: Abnormal Lab Results 03/19/22 03/19/22 03/18/22 09:21 05:19 15:47 WBC Immature Gran % (Auto) Neut % (Auto) Lymph % (Auto) Lymph # (Auto) ABG Methemoglobin 0.3 L POC VBG pH VBG pCO2 65.0 H* 68.9 H* POC VBG pCO2 at Temp VBG pO2 112.2 H 149.5 H POC VBG pO2 VBG HCO3 40.6 H* 38.1 H POC VBG HCO3 VBG Total CO2 42.6 H* 40.3 H POC VBG Total CO2 VBG O2 Saturation 91.7 H 93.9 H POC Venous O2 Sat VBG Base Excess 13 H 10 H POC VBG Base Excess VBG Lactic Acid Carboxyhemoglobin 6.4 H 4.4 H Chloride Carbon Dioxide 44 H* Anion Gap -3.0 L BUN Creatinine 0.4 L Glucose Calcium 8.4 L Phosphorus 2.0 L Albumin 2.7 L 03/18/22 03/17/22 03/17/22 12:35 07:38 07:38 WBC 3.5 L Immature Gran % (Auto) 1.4 H Neut % (Auto) 79.1 H Lymph % (Auto) 9.5 L Lymph # (Auto) 0.33 L ABG Methemoglobin POC VBG pH 7.51 H VBG pCO2 POC VBG pCO2 at Temp 59.5 H VBG pO2 POC VBG pO2 69 H VBG HCO3 POC VBG HCO3 47.6 H* VBG Total CO2 POC VBG Total CO2 49.0 H* VBG O2 Saturation POC Venous O2 Sat 94.0 H VBG Base Excess POC VBG Base Excess 25.0 H* VBG Lactic Acid 0.4 L Carboxyhemoglobin Chloride Carbon Dioxide 44 H* Anion Gap 0 L BUN 28 H Creatinine 0.4 L Glucose Calcium 8.4 L Phosphorus Albumin 3.0 L 03/17/22 07:38 WBC Immature Gran % (Auto) Neut % (Auto) Lymph % (Auto) Lymph # (Auto) ABG Methemoglobin POC VBG pH VBG pCO2 POC VBG pCO2 at Temp VBG pO2 POC VBG pO2 VBG HCO3 POC VBG HCO3 VBG Total CO2 POC VBG Total CO2 VBG O2 Saturation POC Venous O2 Sat VBG Base Excess POC VBG Base Excess VBG Lactic Acid Carboxyhemoglobin Chloride 95 L Carbon Dioxide 42 H* Anion Gap 4.0 L BUN 26 H Creatinine Glucose 125 H Calcium Phosphorus Albumin Meds: Medications Acetaminophen (Acetaminophen 325 Mg Tablet) 650 mg PO Q6HP PRN; Protocol PRN Reason: Per Pain Protocol/Fever > 101 Last Admin: 03/19/22 12:26 Dose: 650 mg Albuterol Sulfate (Albuterol Sulfate 2.5 Mg/3 Ml Nebulizer) 2.5 mg NEB Q2HP PRN PRN Reason: Shortness Of Breath Or Wheezing Aspirin (Aspirin 81 Mg Tab.Chew) 81 mg PO DAILY [facility] Last Admin: 03/19/22 08:03 Dose: 81 mg Budesonide (Budesonide 0.5 Mg/2 Ml Ampul.Neb) 0.5 mg NEB Q12 [facility] Last Admin: 03/19/22 07:06 Dose: 0.5 mg Docusate Sodium (Docusate Sodium 100 Mg Capsule) 100 mg PO BID [facility] Last Admin: 03/19/22 08:03 Dose: 100 mg Enoxaparin Sodium (Enoxaparin 40 Mg/0.4 Ml Syringe) 40 mg SQ DAILY [facility] Last Admin: 03/19/22 08:02 Dose: 40 mg Hydromorphone HCl (Hydromorphone 0.5 Mg/0.5 Ml Syringe) 0.5 mg IV Q2HP PRN; Protocol PRN Reason: Per Pain Protocol Hydroxyzine HCl (Hydroxyzine 25 Mg Tablet) 25 mg PO BIDP PRN PRN Reason: Anxiety Last Admin: 03/19/22 08:14 Dose: 25 mg Levofloxacin (Levaquin) 750 mg in 150 mls @ 100 mls/hr IV Q24H [facility] Stop: 03/20/22 11:29 Last Infusion: 03/19/22 12:11 Dose: Infused Levalbuterol HCl (Levalbuterol 1.25 Mg/3 Ml Ampul.Neb) 1.25 mg NEB [id number] [facility] Last Admin: 03/19/22 11:01 Dose: 1.25 mg Lorazepam (Lorazepam 2 Mg/Ml Vial) 0.5 mg IV Q4HP PRN PRN Reason: ANXIETY/SEDATION Last Admin: 03/17/22 18:50 Dose: 0.5 mg Mirtazapine (Mirtazapine 15 Mg Tablet) [address] [facility] Last Admin: 03/18/22 21:37 Dose: 15 mg Ondansetron HCl (Ondansetron 4 Mg/2 Ml Vial) 4 mg IV Q6HP PRN PRN Reason: Nausea And Vomiting Last Admin: 03/17/22 18:44 Dose: 4 mg Oxybutynin Chloride (Oxybutynin Chloride 5 Mg Tablet) 5 mg PO TID [facility] Last Admin: 03/19/22 08:03 Dose: 5 mg Oxycodone HCl (Oxycodone Hcl 5 Mg Tablet) 5 mg PO Q4HP PRN; Protocol PRN Reason: Per Pain Protocol Last Admin: 03/17/22 20:59 Dose: 5 mg Pantoprazole Sodium ([facility] 40 Mg Tablet) [facility] Last Admin: 03/19/22 08:03 Dose: 40 mg Prednisone (Prednisone 20 Mg Tablet) 40 mg PO QAC [facility] Last Admin: 03/19/22 08:03 Dose: 40 mg Senna (Sennosides 1 Tablet) [address] [facility] Last Admin: 03/18/22 21:38 Dose: 2 tab Sodium Chloride (0.9 % Sodium Chloride 10 Ml Syringe) 10 ml IV Q8 [facility] Last Admin: 03/19/22 05:52 Dose: 10 ml Trazodone HCl (Trazodone Hcl 50 Mg Tablet) 50 mg PO HSP PRN PRN Reason: Insomnia ABG Interpretation ABG results: 03/18/22 03/19/22 15:47 09:21 ABG Methemoglobin 0.4 0.3 L VBG pH 7.36 7.41 VBG pCO2 68.9 H* 65.0 H* VBG pO2 149.5 H 112.2 H VBG HCO3 38.1 H 40.6 H* VBG Total CO2 40.3 H 42.6 H* VBG O2 Saturation 93.9 H 91.7 H VBG Base Excess 10 H 13 H A/P Narrative A/P Narrative: Assessment: 61-year-old female with a history of COPD on oxygen, GABRIELLE on CPAP, GERD, stress urinary incontinence who recently had influenza that was treated with Tamiflu directly admitted from an outside Medical Center in [place] for hypoxic and hypercapnic respiratory failure secondary to a COPD exacerbation. CTA chest showed severe emphysematous changes, no PE. TTE showed LVEF 55 to 60%, normal right ventricular size and function, no valvulopathy. #Acute on chronic hypoxic respiratory failure #Acute on chronic hypercapnic respiratory failure #COPD exacerbation with severe COPD at baseline #Recent influenza infection #Sinus tachycardia #Obstructive sleep apnea on CPAP #GERD #Stress urinary incontinence #Generalized weakness Plan -Continue prednisone 40 mg daily followed by taper. -Scheduled Xopenex, as needed albuterol nebs. -Nasal cannula oxygen supplementation. -BiPAP at nighttime and as needed during daytime. -Levofloxacin 750 mg IV, complete 5 days. -Completed Tamiflu treatment. -Ativan IV as needed for anxiety. -Continue home aspirin, Remeron, oxybutynin. -shirt hemmer, continuous pulse oximetry. -Regular diet. -PT and OT consult. -DVT prophylaxis: Lovenox -CODE STATUS: Full -Disposition: Probably low intensity rehab. Time Spent With Patient Time: Total time spent is greater than 50% in coordination of care (as documented) at patient's floor/unit and/or counseling patient:
[2022-03-19 20:11] LABS: ABG Methemoglobin 0.2 % (0.4-1.5); Total Hemoglobin 14.2 gm/Dl (12.0-15.0); VBG Base Excess 14 (-2-3); VBG HCO3 40.8 mmol/L (24.0-28.0); VBG Oxygen Saturation 93.3 % (40.0-70.0); VBG PH 7.44 U (7.32-7.42); VBG PO2 138.9 mmHg (25.0-40.0); VBG Total CO2 42.7 mmol/L (25.0-29.0)
[2022-03-19] MEDS: traZODone HCL 50 MG TABLET PO PRN (21:17)
[2022-03-19] MEDS: MIRTAZAPINE 15 MG TABLET PO SCH (21:17)
[2022-03-19] MEDS: SENNOSIDES 1 TABLET PO SCH (21:17)
[2022-03-20] MEDS: 0.9 % SODIUM CHLORIDE 10 ML SYRINGE IV SCH ×3 (05:55→20:25)
[2022-03-20 06:44] LABS: Albumin 2.9 gm/dL (3.2-5.2); Calcium 8.4 mg/dL (8.6-10.4); Phosphorous 2.2 mg/dL (2.5-4.5)
[2022-03-20] MEDS: BUDESONIDE 0.5 MG/2 ML AMPUL.NEB NEB SCH ×2 (07:04→19:38)
[2022-03-20] MEDS: LEVALBUTEROL 1.25 MG/3 ML AMPUL.NEB NEB SCH ×5 (07:05→23:50)
[2022-03-20] MEDS: DOCUSATE SODIUM 100 MG CAPSULE PO SCH ×2 (08:07→20:25)
[2022-03-20] MEDS: ASPIRIN 81 MG TAB.CHEW PO SCH (08:07)
[2022-03-20] MEDS: OXYBUTYNIN CHLORIDE 5 MG TABLET PO SCH ×3 (08:07→20:25)
[2022-03-20] MEDS: predniSONE 20 MG TABLET PO SCH (08:07)
[2022-03-20] MEDS: PANTOPRAZOLE 40 MG TABLET PO SCH (08:07)
[2022-03-20] MEDS: ENOXAPARIN 40 MG/0.4 ML SYRINGE SQ SCH (08:07)
--- NOTE | 2022-03-20 10:16 | Internal Med Progress Note ---
SUBJECTIVE Subjective Patient information: Note initiated : 03/20/22 at 10:14 am Service Date, if different from initiated Date: [] Patient: Yane Segura 61 y/o F admitted on 03/15/22 for COPD Exacerbation. Chief Complaint: [] Interval history: 03/17 Respiratory status improved, the patient was on heated high flow nasal cannula overnight. Continues to have sinus tachycardia today, no cause of tachycardia identified. Low normal blood pressures so will give a IV fluid bolus to see if tachycardia improves with some fluid. 03/18 Heart rate continues to be elevated, did improve yesterday with a 500 mL bolus so ordered a 1 mL bolus today. Serum bicarbonate level trending up, will check a VBG. The patient has been on heated high flow nasal cannula most of the time. Appears comfortable. Transition to prednisone, discontinued IV Solu-Medrol. 03/19 No significant events overnight, weaned back to 3 L/min nasal cannula oxygen which is about the patient's baseline oxygen requirement. VBG shows persistently elevated carbon dioxide, will try BiPAP this afternoon for a few hours and see if the patient's energy levels improve with BiPAP. Also transition to BiPAP at night which the patient uses at home. Heart rate in the low 100s. 03/20 No significant events overnight, on 3 L nasal cannula oxygen supplementation. Tolerated BiPAP well last night. Transfer to [facility] status. Tentative plan to discharge to low intensity rehab tomorrow pending bed availability. Physical exam Head: Atraumatic, normal inspection. Eyes: normal appearance, no scleral icterus. Neck: full ROM Respiratory: Nasal cannula oxygen supplementation, does not appear to be in respiratory distress. Cardiovascular: Regular tachycardia, S1, S2. GI/Abdominal: soft, nontender, no guarding. Extremities: full range of motion, nontender. Neurological: CN II-XII intact, intact motor, intact sensation. Psychiatric: normal mood. Skin: warm, normal color Constitutional Vitals: Vital Signs Temp Pulse Resp BP Pulse Ox O2 Del Method O2 Flow Rate 97.6 F 110 H 19 104/72 90 3 03/20/22 08:00 03/20/22 10:00 03/20/22 10:00 03/20/22 10:00 03/20/22 10:00 03/20/22 10:03/20/22 10:00 Period Temp Pulse Resp BP Sys/Pereira Pulse Ox O2 Del Method O2 Flow Rate Last 24 Hr 96.8 F-98.6 F 86-113 16-24 82-132/59-100 90-98 BiPAP-Nasal Cannula 3-3 Intake and Output 03/19/22 03/20/22 03/20/22 19:59 03:59 11:59 Intake Total 1350 490 Output Total 1825 375 Balance -475 115 Weight 64.002 kg Intake & Output: Intake & Output 03/19/22 03/20/22 03/20/22 19:59 03:59 11:59 Intake Total 1350 490 Output Total 1825 375 Balance -475 115 Weight 64.002 kg Intake: Nourishment/Supplement quantity 480 240 (ml) IV 150 Oral 720 250 Output: Urine Catheter Amount 1200 375 Void Amount 625 Other: Meal Dinner Breakfast Percent of Meal Consumed 100% 100% Feeding Ability Independent Nourishment/Supplement name Ensure Ensure Urine Appearance Clear Clear Clear Uretheral ([place]) Clear Urine Color Bright Yellow Yellow Yellow Pale Pale Uretheral ([place]) Yellow Urine Odor Normal Normal Normal OBJ DATA Labs CBC & Chem 7: 03/17/22 07:38 03/20/22 05:31 Labs: Abnormal Lab Results 03/20/22 03/19/22 03/19/22 05:31 19:49 09:21 ABG Methemoglobin 0.2 L 0.3 L VBG pH 7.44 H VBG pCO2 62.0 H* 65.0 H* VBG pO2 138.9 H 112.2 H VBG HCO3 40.8 H* 40.6 H* VBG Total CO2 42.7 H* 42.6 H* VBG O2 Saturation 93.3 H 91.7 H VBG Base Excess 14 H 13 H Carboxyhemoglobin 5.3 H 6.4 H Chloride 94 L Carbon Dioxide 42 H* Anion Gap 2.0 L BUN Creatinine 0.4 L Calcium 8.4 L Phosphorus 2.2 L Albumin 2.9 L 03/19/22 03/18/22 03/18/22 05:19 15:47 12:35 ABG Methemoglobin VBG pH VBG pCO2 68.9 H* VBG pO2 149.5 H VBG HCO3 38.1 H VBG Total CO2 40.3 H VBG O2 Saturation 93.9 H VBG Base Excess 10 H Carboxyhemoglobin 4.4 H Chloride Carbon Dioxide 44 H* 44 H* Anion Gap -3.0 L 0 L BUN 28 H Creatinine 0.4 L 0.4 L Calcium 8.4 L 8.4 L Phosphorus 2.0 L Albumin 2.7 L 3.0 L Meds: Medications Acetaminophen (Acetaminophen 325 Mg Tablet) 650 mg PO Q6HP PRN; Protocol PRN Reason: Per Pain Protocol/Fever > 101 Last Admin: 03/19/22 12:26 Dose: 650 mg Albuterol Sulfate (Albuterol Sulfate 2.5 Mg/3 Ml Nebulizer) 2.5 mg NEB Q2HP PRN PRN Reason: Shortness Of Breath Or Wheezing Aspirin (Aspirin 81 Mg Tab.Chew) 81 mg PO DAILY [facility] Last Admin: 03/20/22 08:07 Dose: 81 mg Budesonide (Budesonide 0.5 Mg/2 Ml Ampul.Neb) 0.5 mg NEB Q12 [facility] Last Admin: 03/20/22 07:04 Dose: 0.5 mg Docusate Sodium (Docusate Sodium 100 Mg Capsule) 100 mg PO BID [facility] Last Admin: 03/20/22 08:07 Dose: 100 mg Enoxaparin Sodium (Enoxaparin 40 Mg/0.4 Ml Syringe) 40 mg SQ DAILY [facility] Last Admin: 03/20/22 08:07 Dose: 40 mg Hydromorphone HCl (Hydromorphone 0.5 Mg/0.5 Ml Syringe) 0.5 mg IV Q2HP PRN; Protocol PRN Reason: Per Pain Protocol Hydroxyzine HCl (Hydroxyzine 25 Mg Tablet) 25 mg PO BIDP PRN PRN Reason: Anxiety Last Admin: 03/19/22 08:14 Dose: 25 mg Levofloxacin (Levaquin) 750 mg in 150 mls @ 100 mls/hr IV Q24H [facility] Stop: 03/20/22 11:29 Last Infusion: 03/19/22 12:11 Dose: Infused Levalbuterol HCl (Levalbuterol 1.25 Mg/3 Ml Ampul.Neb) 1.25 mg NEB [id number] [facility] Last Admin: 03/20/22 07:05 Dose: 1.25 mg Lorazepam (Lorazepam 2 Mg/Ml Vial) 0.5 mg IV Q4HP PRN PRN Reason: ANXIETY/SEDATION Last Admin: 03/17/22 18:50 Dose: 0.5 mg Mirtazapine (Mirtazapine 15 Mg Tablet) 15 mg PO [facility] Last Admin: 03/19/22 21:17 Dose: 15 mg Ondansetron HCl (Ondansetron 4 Mg/2 Ml Vial) 4 mg IV Q6HP PRN PRN Reason: Nausea And Vomiting Last Admin: 03/17/22 18:44 Dose: 4 mg Oxybutynin Chloride (Oxybutynin Chloride 5 Mg Tablet) 5 mg PO TID [facility] Last Admin: 03/20/22 08:07 Dose: 5 mg Oxycodone HCl (Oxycodone Hcl 5 Mg Tablet) 5 mg PO Q4HP PRN; Protocol PRN Reason: Per Pain Protocol Last Admin: 03/17/22 20:59 Dose: 5 mg Pantoprazole Sodium (Pantoprazole 40 Mg Tablet) 40 mg PO [facility] Last Admin: 03/20/22 08:07 Dose: 40 mg Prednisone (Prednisone 20 Mg Tablet) 40 mg PO [facility] Last Admin: 03/20/22 08:07 Dose: 40 mg Senna (Sennosides 1 Tablet) 2 tab PO [facility] Last Admin: 03/19/22 21:17 Dose: 2 tab Sodium Chloride (0.9 % Sodium Chloride 10 Ml Syringe) 10 ml IV Q8 [facility] Last Admin: 03/20/22 05:55 Dose: 10 ml Trazodone HCl (Trazodone Hcl 50 Mg Tablet) 50 mg PO [facility] PRN PRN Reason: Insomnia Last Admin: 03/19/22 21:17 Dose: 50 mg ABG Interpretation ABG results: 03/18/22 03/19/22 03/19/22 15:47 09:21 19:49 ABG Methemoglobin 0.4 0.3 L 0.2 L VBG pH 7.36 7.41 7.44 H VBG pCO2 68.9 H* 65.0 H* 62.0 H* VBG pO2 149.5 H 112.2 H 138.9 H VBG HCO3 38.1 H 40.6 H* 40.8 H* VBG Total CO2 40.3 H 42.6 H* 42.7 H* VBG O2 Saturation 93.9 H 91.7 H 93.3 H VBG Base Excess 10 H 13 H 14 H A/P Narrative A/P Narrative: Assessment: 61-year-old female with a history of COPD on oxygen, GABRIELLE on CPAP, GERD, stress urinary incontinence who recently had influenza that was treated with Tamiflu directly admitted from an outside Medical Center in [place] for hypoxic and hypercapnic respiratory failure secondary to a COPD exacerbation. CTA chest showed severe emphysematous changes, no PE. TTE showed LVEF 55 to 60%, normal right ventricular size and function, no valvulopathy. #Acute on chronic hypoxic respiratory failure #Acute on chronic hypercapnic respiratory failure #COPD exacerbation with severe COPD at baseline #Recent influenza infection #Sinus tachycardia #Obstructive sleep apnea on CPAP #GERD #Stress urinary incontinence #Generalized weakness #Guarded prognosis Plan -Continue prednisone 40 mg daily followed by taper. -Scheduled Xopenex, as needed albuterol nebs. -The patient says she does not tolerate DuoNebs well. -Nasal cannula oxygen supplementation. -BiPAP at nighttime and as needed during daytime. -Levofloxacin 750 mg IV, complete 5 days. -Holding home azithromycin, will resume after completing levofloxacin. -Completed Tamiflu treatment. -Ativan IV as needed for anxiety. -Continue home aspirin, Remeron, oxybutynin. 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 -Regular diet. -PT and OT consult. -DVT prophylaxis: Lovenox -CODE STATUS: Full -Disposition: Probably low intensity rehab. Hospice would be appropriate as the patient has COPD that is oxygen dependent and likely progressing to be BiPAP dependent. Time Spent With Patient Time: Total time spent is greater than 50% in coordination of care (as documented) at patient's floor/unit and/or counseling patient:
[2022-03-20] MEDS: LEVOFLOXACIN 750 MG/150 ML BAG IV SCH (10:20)
[2022-03-20] MEDS: hydrOXYzine 25 MG TABLET PO PRN ×2 (11:27→20:28)
[2022-03-20] MEDS: traZODone HCL 50 MG TABLET PO PRN (20:25)
[2022-03-20] MEDS: SENNOSIDES 1 TABLET PO SCH (20:25)
[2022-03-20] MEDS: MIRTAZAPINE 15 MG TABLET PO SCH (20:25)
[2022-03-21] MEDS: 0.9 % SODIUM CHLORIDE 10 ML SYRINGE IV SCH ×3 (04:33→20:54)
[2022-03-21 07:04] LABS: Albumin 2.7 gm/dL (3.2-5.2); Blood Urea Nitrogen 22 mg/dL (8-23); Calcium 8.5 mg/dL (8.6-10.4); Carbon Dioxide 42 mmol/L (22-30); Chloride 95 mmol/L (96-108); Glomerular Filtration Rate 110; Glucose 85 mg/dL (70-105); Phosphorous 2.3 mg/dL (2.5-4.5)
[2022-03-21] MEDS: BUDESONIDE 0.5 MG/2 ML AMPUL.NEB NEB SCH ×2 (07:25→21:27)
[2022-03-21] MEDS: LEVALBUTEROL 1.25 MG/3 ML AMPUL.NEB NEB SCH (07:25)
[2022-03-21] MEDS: PANTOPRAZOLE 40 MG TABLET PO SCH (07:49)
[2022-03-21] MEDS: OXYBUTYNIN CHLORIDE 5 MG TABLET PO SCH ×3 (08:42→20:53)
[2022-03-21] MEDS: DOCUSATE SODIUM 100 MG CAPSULE PO SCH ×2 (08:42→20:53)
[2022-03-21] MEDS: ASPIRIN 81 MG TAB.CHEW PO SCH (08:42)
[2022-03-21] MEDS: predniSONE 20 MG TABLET PO SCH (08:42)
[2022-03-21] MEDS: ENOXAPARIN 40 MG/0.4 ML SYRINGE SQ SCH (08:42)
[2022-03-21] MEDS: IPRATROPIUM/ALBUTEROL 3 ML AMPUL.NEB NEB SCH ×4 (11:00→21:27)
--- NOTE | 2022-03-21 11:45 | Internal Med Progress Note ---
SUBJECTIVE Subjective Patient information: Note initiated : 03/21/22 at 11:42 am Service Date, if different from initiated Date: [] Patient: Yane Segura 61 y/o F admitted on 03/15/22 for COPD Exacerbation. Chief Complaint: [] Interval history: 03/17 Respiratory status improved, the patient was on heated high flow nasal cannula overnight. Continues to have sinus tachycardia today, no cause of tachycardia identified. Low normal blood pressures so will give a IV fluid bolus to see if tachycardia improves with some fluid. 03/18 Heart rate continues to be elevated, did improve yesterday with a 500 mL bolus so ordered a 1 mL bolus today. Serum bicarbonate level trending up, will check a VBG. The patient has been on heated high flow nasal cannula most of the time. Appears comfortable. Transition to prednisone, discontinued IV Solu-Medrol. 03/19 No significant events overnight, weaned back to 3 L/min nasal cannula oxygen which is about the patient's baseline oxygen requirement. VBG shows persistently elevated carbon dioxide, will try BiPAP this afternoon for a few hours and see if the patient's energy levels improve with BiPAP. Also transition to BiPAP at night which the patient uses at home. Heart rate in the low 100s. 03/20 No significant events overnight, on 3 L nasal cannula oxygen supplementation. Tolerated BiPAP well last night. Transfer to [facility] status. Tentative plan to discharge to low intensity rehab tomorrow pending bed availability. 03/21 Stable overnight, transition to duo nebs today, discontinued scheduled Xopenex. We will see if the patient tolerates DuoNebs, she has been having some issues with that at home. Prior to admission, the patient was on scheduled DuoNebs and albuterol metered-dose inhaler as needed. Continue BiPAP at night and during the daytime as needed. Waiting for final authorization for low intensity rehab at [facility] bed. Physical exam Head: Atraumatic, normal inspection. Eyes: normal appearance, no scleral icterus. Neck: full ROM Respiratory: Nasal cannula oxygen supplementation, does not appear to be in respiratory distress. Cardiovascular: Regular rate and rhythm, S1, S2. GI/Abdominal: soft, nontender, no guarding. Extremities: full range of motion, nontender. Neurological: CN II-XII intact, intact motor, intact sensation. Psychiatric: normal mood. Skin: warm, normal color Constitutional Vitals: Vital Signs Temp Pulse Resp BP Pulse Ox O2 Del Method O2 Flow Rate 98.5 F 88 16 97/62 98 3 03/21/22 08:00 03/21/22 11:01 03/21/22 11:01 03/21/22 08:00 03/21/22 08:00 03/21/22 11:01 03/21/22 11:01 Period Temp Pulse Resp BP Sys/Pereira Pulse Ox O2 Del Method O2 Flow Rate Last 24 Hr 97.3 F-98.8 F 81-114 12-24 88-110/50-70 92-100 BiPAP-Nasal Cannula, Bubble Humidifier 3-3 Intake and Output 03/20/22 03/21/22 03/21/22 19:59 03:59 11:59 Intake Total 350 650 540 Output Total 251 201 Balance 99 449 540 Weight 62.823 kg Intake & Output: Intake & Output 03/20/22 03/21/22 03/21/22 19:59 03:59 11:59 Intake Total 350 650 540 Output Total 251 201 Balance 99 449 540 Weight 62.823 kg Intake: Nourishment/Supplement quantity 180 (ml) IV 150 Oral 650 360 GI Tube Flush 200 Output: Void Amount 250 200 # of times incontinent of urine 1 1 Other: Meal Breakfast Percent of Meal Consumed 50% Feeding Ability Assist with Tray Set Up Nourishment/Supplement name Ensure Urine Appearance Clear Clear Urine Color Yellow Yellow Stool Size Moderate Stool Color Brown Stool Consistency Formed # Voids 1 # Bowel Movements 1 OBJ DATA Labs CBC & Chem 7: 03/17/22 07:38 03/21/22 05:24 Labs: Abnormal Lab Results 03/21/22 03/20/22 03/19/22 05:24 05:31 19:49 ABG Methemoglobin 0.2 L VBG pH 7.44 H VBG pCO2 62.0 H* VBG pO2 138.9 H VBG HCO3 40.8 H* VBG Total CO2 42.7 H* VBG O2 Saturation 93.3 H VBG Base Excess 14 H Carboxyhemoglobin 5.3 H Chloride 95 L 94 L Carbon Dioxide 42 H* 42 H* Anion Gap 1.0 L 2.0 L BUN Creatinine 0.4 L 0.4 L Calcium 8.5 L 8.4 L Phosphorus 2.3 L 2.2 L Albumin 2.7 L 2.9 L 03/19/22 03/19/22 03/18/22 09:21 05:19 15:47 ABG Methemoglobin 0.3 L VBG pH VBG pCO2 65.0 H* 68.9 H* VBG pO2 112.2 H 149.5 H VBG HCO3 40.6 H* 38.1 H VBG Total CO2 42.6 H* 40.3 H VBG O2 Saturation 91.7 H 93.9 H VBG Base Excess 13 H 10 H Carboxyhemoglobin 6.4 H 4.4 H Chloride Carbon Dioxide 44 H* Anion Gap -3.0 L BUN Creatinine 0.4 L Calcium 8.4 L Phosphorus 2.0 L Albumin 2.7 L 03/18/22 12:35 ABG Methemoglobin VBG pH VBG pCO2 VBG pO2 VBG HCO3 VBG Total CO2 VBG O2 Saturation VBG Base Excess Carboxyhemoglobin Chloride Carbon Dioxide 44 H* Anion Gap 0 L BUN 28 H Creatinine 0.4 L Calcium 8.4 L Phosphorus Albumin 3.0 L Meds: Medications Acetaminophen (Acetaminophen 325 Mg Tablet) 650 mg PO Q6HP PRN; Protocol PRN Reason: Per Pain Protocol/Fever > 101 Last Admin: 03/19/22 12:26 Dose: 650 mg Albuterol Sulfate (Albuterol Sulfate 2.5 Mg/3 Ml Nebulizer) 2.5 mg NEB Q2HP PRN PRN Reason: Shortness Of Breath Or Wheezing Albuterol/Ipratropium (Ipratropium/Albuterol 3 Ml Ampul.Neb) 3 ml NEB QID [facility] Last Admin: 03/21/22 11:00 Dose: 3 ml Aspirin (Aspirin 81 Mg Tab.Chew) 81 mg PO DAILY [facility] Last Admin: 03/21/22 08:42 Dose: 81 mg Budesonide (Budesonide 0.5 Mg/2 Ml Ampul.Neb) 0.5 mg NEB Q12 [facility] Last Admin: 03/21/22 07:25 Dose: 0.5 mg Docusate Sodium (Docusate Sodium 100 Mg Capsule) 100 mg PO BID [facility] Last Admin: 03/21/22 08:42 Dose: 100 mg Enoxaparin Sodium (Enoxaparin 40 Mg/0.4 Ml Syringe) 40 mg SQ DAILY [facility] Last Admin: 03/21/22 08:42 Dose: 40 mg Hydromorphone HCl (Hydromorphone 0.5 Mg/0.5 Ml Syringe) 0.5 mg IV Q2HP PRN; Protocol PRN Reason: Per Pain Protocol Hydroxyzine HCl (Hydroxyzine 25 Mg Tablet) 25 mg PO BIDP PRN PRN Reason: Anxiety Last Admin: 03/20/22 20:28 Dose: 25 mg Lorazepam (Lorazepam 2 Mg/Ml Vial) 0.5 mg IV Q4HP PRN PRN Reason: ANXIETY/SEDATION Last Admin: 03/17/22 18:50 Dose: 0.5 mg Mirtazapine (Mirtazapine 15 Mg Tablet) 15 mg PO [facility] Last Admin: 03/20/22 20:25 Dose: 15 mg Ondansetron HCl (Ondansetron 4 Mg/2 Ml Vial) 4 mg IV Q6HP PRN PRN Reason: Nausea And Vomiting Last Admin: 03/17/22 18:44 Dose: 4 mg Oxybutynin Chloride (Oxybutynin Chloride 5 Mg Tablet) 5 mg PO TID [facility] Last Admin: 03/21/22 08:42 Dose: 5 mg Oxycodone HCl (Oxycodone Hcl 5 Mg Tablet) 5 mg PO Q4HP PRN; Protocol PRN Reason: Per Pain Protocol Last Admin: 03/17/22 20:59 Dose: 5 mg Pantoprazole Sodium ([facility] 40 Mg [facility]t) [facility] Last Admin: 03/21/22 07:49 Dose: 40 mg Prednisone (Prednisone 20 Mg Tablet) 40 mg PO [facility] Last Admin: 03/21/22 08:42 Dose: 40 mg Senna (Sennosides 1 Tablet) 2 tab PO [facility] Last Admin: 03/20/22 20:25 Dose: 2 tab Sodium Chloride (0.9 % Sodium Chloride 10 Ml Syringe) 10 ml IV Q8 [facility] Last Admin: 03/21/22 04:33 Dose: 10 ml Trazodone HCl (Trazodone Hcl 50 Mg Tablet) 50 mg PO [facility] PRN PRN Reason: Insomnia Last Admin: 03/20/22 20:25 Dose: 50 mg ABG Interpretation ABG results: 03/18/22 03/19/22 03/19/22 15:47 09:21 19:49 ABG Methemoglobin 0.4 0.3 L 0.2 L VBG pH 7.36 7.41 7.44 H VBG pCO2 68.9 H* 65.0 H* 62.0 H* VBG pO2 149.5 H 112.2 H 138.9 H VBG HCO3 38.1 H 40.6 H* 40.8 H* VBG Total CO2 40.3 H 42.6 H* 42.7 H* VBG O2 Saturation 93.9 H 91.7 H 93.3 H VBG Base Excess 10 H 13 H 14 H A/P Narrative A/P Narrative: Assessment: 61-year-old female with a history of COPD on oxygen, GABRIELLE on CPAP, GERD, stress urinary incontinence who recently had influenza that was treated with Tamiflu directly admitted from an outside Medical Center in [place] for hypoxic and hypercapnic respiratory failure secondary to a COPD exacerbation. CTA chest showed severe emphysematous changes, no PE. TTE showed LVEF 55 to 60%, normal right ventricular size and function, no valvulopathy. #Acute on chronic hypoxic respiratory failure #Acute on chronic hypercapnic respiratory failure #COPD exacerbation with severe COPD at baseline #Possible community-acquired pneumonia #Recent influenza infection #Sinus tachycardia #Obstructive sleep apnea on CPAP #GERD #Stress urinary incontinence #Generalized weakness #Guarded prognosis Plan -Continue prednisone 40 mg daily followed by taper. -Start scheduled DuoNebs and discontinued scheduled Xopenex. -Albuterol nebs as needed. -Nasal cannula oxygen supplementation. -BiPAP at nighttime and as needed during daytime. -Completed antibiotics for possible CAP. -Completed Tamiflu treatment. -Holding home azithromycin for now given recent antibiotic. -Ativan IV as needed for anxiety. -Continue home aspirin, Remeron, oxybutynin. 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 -Regular diet. -PT and OT consult. -DVT prophylaxis: Lovenox -CODE STATUS: Full -Disposition: Low intensity rehab at [facility] pending final authorization. Time Spent With Patient Time: Total time spent is greater than 50% in coordination of care (as documented) at patient's floor/unit and/or counseling patient:
[2022-03-21] MEDS ORDERED: acetaZOLAMIDE SOD 500 MG VIAL IV ONE (13:29)
--- NOTE | 2022-03-21 13:30 | Internal Med Progress Note ---
SUBJECTIVE Subjective Patient information: Note initiated : 03/21/22 at 1:24 pm Service Date, if different from initiated Date: [] Patient: Yane Segura 61 y/o F admitted on 03/15/22 for COPD Exacerbation. Chief Complaint: [] Interval history: 03/17 Respiratory status improved, the patient was on heated high flow nasal cannula overnight. Continues to have sinus tachycardia today, no cause of tachycardia identified. Low normal blood pressures so will give a IV fluid bolus to see if tachycardia improves with some fluid. 03/18 Heart rate continues to be elevated, did improve yesterday with a 500 mL bolus so ordered a 1 mL bolus today. Serum bicarbonate level trending up, will check a VBG. The patient has been on heated high flow nasal cannula most of the time. Appears comfortable. Transition to prednisone, discontinued IV Solu-Medrol. 03/19 No significant events overnight, weaned back to 3 L/min nasal cannula oxygen which is about the patient's baseline oxygen requirement. VBG shows persistently elevated carbon dioxide, will try BiPAP this afternoon for a few hours and see if the patient's energy levels improve with BiPAP. Also transition to BiPAP at night which the patient uses at home. Heart rate in the low 100s. 03/20 No significant events overnight, on 3 L nasal cannula oxygen supplementation. Tolerated BiPAP well last night. Transfer to [facility] status. Tentative plan to discharge to low intensity rehab tomorrow pending bed availability. 03/21 Stable overnight, transition to duo nebs today, discontinued scheduled Xopenex. We will see if the patient tolerates DuoNebs, she has been having some issues with that at home. Prior to admission, the patient was on scheduled DuoNebs and albuterol metered-dose inhaler as needed. Continue BiPAP at night and during the daytime as needed. Waiting for final authorization for low intensity rehab at [facility]. 03/22 Constitutional Vitals: Vital Signs Temp Pulse Resp BP Pulse Ox O2 Del Method O2 Flow Rate 98.5 F 88 16 97/62 98 3 03/21/22 08:00 03/21/22 11:01 03/21/22 11:01 03/21/22 08:00 03/21/22 08:00 03/21/22 11:01 03/21/22 11:01 Period Temp Pulse Resp BP Sys/Pereira Pulse Ox O2 Del Method O2 Flow Rate Last 24 Hr 97.3 F-98.8 F 81-114 12-24 88-110/50-66 92-100 BiPAP-Nasal Cannula, Bubble Humidifier 3-3 Intake and Output 03/21/22 03/21/22 03/21/22 03:59 11:59 19:59 Intake Total 650 540 240 Output Total 201 200 Balance 449 540 40 Intake & Output: Intake & Output 03/21/22 03/21/22 03/21/22 03:59 11:59 19:59 Intake Total 650 540 240 Output Total 201 200 Balance 449 540 40 Intake: Nourishment/Supplement quantity 180 (ml) Oral 650 360 240 Output: Void Amount 200 200 # of times incontinent of urine 1 Other: Meal Breakfast Lunch Percent of Meal Consumed 50% 75% Feeding Ability Assist with Tray Set Up Assist with Tray Set Up Nourishment/Supplement name Ensure Urine Appearance Clear Urine Color Yellow Stool Size Moderate Small Stool Color Brown Brown Stool Consistency Formed Formed # Bowel Movements 1 1 Exam: General: Alert, Awake, No acute Distress Eyes/N/T: EOMI, Head/Neck: neck supple, CV: RRR, No murmurs, Pulm: b/l, no wheezing/rhonchi/rales. NC o2 Abd: soft, nontender, +BS x4 Ext: no clubbing/cyanosis/edema Neuro: Alert, no focal deficits, moves all extremities, Skin: warm/dry OBJ DATA Labs CBC & Chem 7: 03/17/22 07:38 03/21/22 05:24 Labs: Abnormal Lab Results 03/21/22 03/20/22 03/19/22 05:24 05:31 19:49 ABG Methemoglobin 0.2 L VBG pH 7.44 H VBG pCO2 62.0 H* VBG pO2 138.9 H VBG HCO3 40.8 H* VBG Total CO2 42.7 H* VBG O2 Saturation 93.3 H VBG Base Excess 14 H Carboxyhemoglobin 5.3 H Chloride 95 L 94 L Carbon Dioxide 42 H* 42 H* Anion Gap 1.0 L 2.0 L BUN Creatinine 0.4 L 0.4 L Calcium 8.5 L 8.4 L Phosphorus 2.3 L 2.2 L Albumin 2.7 L 2.9 L 03/19/22 03/19/22 03/18/22 09:21 05:19 15:47 ABG Methemoglobin 0.3 L VBG pH VBG pCO2 65.0 H* 68.9 H* VBG pO2 112.2 H 149.5 H VBG HCO3 40.6 H* 38.1 H VBG Total CO2 42.6 H* 40.3 H VBG O2 Saturation 91.7 H 93.9 H VBG Base Excess 13 H 10 H Carboxyhemoglobin 6.4 H 4.4 H Chloride Carbon Dioxide 44 H* Anion Gap -3.0 L BUN Creatinine 0.4 L Calcium 8.4 L Phosphorus 2.0 L Albumin 2.7 L 03/18/22 12:35 ABG Methemoglobin VBG pH VBG pCO2 VBG pO2 VBG HCO3 VBG Total CO2 VBG O2 Saturation VBG Base Excess Carboxyhemoglobin Chloride Carbon Dioxide 44 H* Anion Gap 0 L BUN 28 H Creatinine 0.4 L Calcium 8.4 L Phosphorus Albumin 3.0 L Meds: Medications Acetaminophen (Acetaminophen 325 Mg Tablet) 650 mg PO Q6HP PRN; Protocol PRN Reason: Per Pain Protocol/Fever > 101 Last Admin: 03/19/22 12:26 Dose: 650 mg Albuterol Sulfate (Albuterol Sulfate 2.5 Mg/3 Ml Nebulizer) 2.5 mg NEB Q2HP PRN PRN Reason: Shortness Of Breath Or Wheezing Albuterol/Ipratropium (Ipratropium/Albuterol 3 Ml Ampul.Neb) 3 ml NEB QID [facility] Last Admin: 03/21/22 11:00 Dose: 3 ml Aspirin (Aspirin 81 Mg Tab.Chew) 81 mg PO DAILY [facility] Last Admin: 03/21/22 08:42 Dose: 81 mg Budesonide (Budesonide 0.5 Mg/2 Ml Ampul.Neb) 0.5 mg NEB Q12 [facility] Last Admin: 03/21/22 07:25 Dose: 0.5 mg Docusate Sodium (Docusate Sodium 100 Mg Capsule) 100 mg PO BID [facility] Last Admin: 03/21/22 08:42 Dose: 100 mg Enoxaparin Sodium (Enoxaparin 40 Mg/0.4 Ml Syringe) 40 mg SQ DAILY [facility] Last Admin: 03/21/22 08:42 Dose: 40 mg Hydromorphone HCl (Hydromorphone 0.5 Mg/0.5 Ml Syringe) 0.5 mg IV Q2HP PRN; Protocol PRN Reason: Per Pain Protocol Hydroxyzine HCl (Hydroxyzine 25 Mg Tablet) 25 mg PO BIDP PRN PRN Reason: Anxiety Last Admin: 03/20/22 20:28 Dose: 25 mg Lorazepam (Lorazepam 2 Mg/Ml Vial) 0.5 mg IV Q4HP PRN PRN Reason: ANXIETY/SEDATION Last Admin: 03/17/22 18:50 Dose: 0.5 mg Mirtazapine (Mirtazapine 15 Mg Tablet) 15 mg PO [facility] Last Admin: 03/20/22 20:25 Dose: 15 mg Ondansetron HCl (Ondansetron 4 Mg/2 Ml Vial) 4 mg IV Q6HP PRN PRN Reason: Nausea And Vomiting Last Admin: 03/17/22 18:44 Dose: 4 mg Oxybutynin Chloride (Oxybutynin Chloride 5 Mg Tablet) 5 mg PO TID [facility] Last Admin: 03/21/22 08:42 Dose: 5 mg Oxycodone HCl (Oxycodone Hcl 5 Mg Tablet) 5 mg PO Q4HP PRN; Protocol PRN Reason: Per Pain Protocol Last Admin: 03/17/22 20:59 Dose: 5 mg Pantoprazole Sodium (Pantoprazole 40 Mg Tablet) 40 mg PO [facility] Last Admin: 03/21/22 07:49 Dose: 40 mg Prednisone (Prednisone 20 Mg Tablet) 40 mg PO [facility] Last Admin: 03/21/22 08:42 Dose: 40 mg Senna (Sennosides 1 Tablet) 2 tab PO [facility] Last Admin: 03/20/22 20:25 Dose: 2 tab Sodium Chloride (0.9 % Sodium Chloride 10 Ml Syringe) 10 ml IV Q8 [facility] Last Admin: 03/21/22 04:33 Dose: 10 ml Trazodone HCl (Trazodone Hcl 50 Mg Tablet) 50 mg PO [facility] PRN PRN Reason: Insomnia Last Admin: 03/20/22 20:25 Dose: 50 mg ABG Interpretation ABG results: 03/18/22 03/19/22 03/19/22 15:47 09:21 19:49 ABG Methemoglobin 0.4 0.3 L 0.2 L VBG pH 7.36 7.41 7.44 H VBG pCO2 68.9 H* 65.0 H* 62.0 H* VBG pO2 149.5 H 112.2 H 138.9 H VBG HCO3 38.1 H 40.6 H* 40.8 H* VBG Total CO2 40.3 H 42.6 H* 42.7 H* VBG O2 Saturation 93.9 H 91.7 H 93.3 H VBG Base Excess 10 H 13 H 14 H A/P Narrative A/P Narrative: A: #Acute on chronic hypoxic/hypercapnic respiratory failure: #COPD ( ) exacerbation with severe COPD at baseline: #Metabolic alkalosis: 2/2 above #Possible community-acquired pneumonia: #Recent influenza infection: #Sinus tachycardia: #GABRIELLE: on CPAP #GERD: #Stress urinary incontinence: #Generalized weakness/Deconditioning: #Guarded prognosis: Plan: -Continue prednisone 40 mg daily followed by taper -Start scheduled DuoNebs and discontinued scheduled Xopenex -Albuterol nebs as needed -d/c on advair or symbicort (start inpt) and f/u referral to Pulmonology -Nasal cannula oxygen supplementation -BiPAP at nighttime and as needed during daytime -Completed antibiotics for possible CAP. -Completed Tamiflu treatment -Holding home azithromycin for now given recent antibiotic. -Ativan IV as needed for anxiety -Continue home aspirin, Remeron, oxybutynin. -school lunch monitor, continuous pulse oximetry -PT and OT consult. -ppx: Lovenox CODE STATUS: Piping Engineer Spent With Patient Time: Total time spent is greater than 50% in coordination of care (as documented) at patient's floor/unit and/or counseling patient:
--- NOTE | 2022-03-21 15:44 | Discharge Summary ---
Discharge Provider Provider IMPORTANT FOLLOW-UP INFORMATION FOR PCP: Patient information: Note initiated : 03/21/22 at 3:43 pm Service Date, if different from initiated Date: [] Patient: Yane Segura 61 y/o F admitted on 03/15/22 for COPD Exacerbation. Chief Complaint: [] Date of admission: 03/15/22 23:29 Discharge date: 03/23/22 Primary care physician: Camille Love COURSE Hospital Course Hospital course: History of present illness: Ms. Segura is a 61 year old F History of COPD on oxygen at baseline on 3 L, presented to an outside Medical Center in [place] for evaluation of shortness of breath. The patient has not been feeling well for 1 and half weeks, she was seen by her primary provider on 08 March, she was diagnosed with influenza and was given Tamiflu, she notes she completed a 5-day course of Tamiflu, however the medication made her feel a bit off. She noted a symptoms of shortness of breath and cough did not improve, and therefore she was seen in the ED at date and the , at that time she was on 3 to 4 L of oxygen, her symptoms however gradually got worse, her oxygen requirements increased, Patient was eventually requiring BiPAP therapy with increasing oxygen needs. The patient does have history of intubation in the past because of severe COPD exacerbation, given the facility did not have ability to manage BiPAP at night, or mechanically ventilated patient reached out to this facility for transfer. At the time of my evaluation patient was on BiPAP, but she was able to answer questions appropriately, denied any chest pain or chest tightness, admit to having some cough as well as shortness of breath,She denied any nausea vomiting or any bowel or bladder issues. The patient is being admitted to the hospital for further management. 03/17 Respiratory status improved, the patient was on heated high flow nasal cannula overnight. Continues to have sinus tachycardia today, no cause of tachycardia identified. Low normal blood pressures so will give a IV fluid bolus to see if tachycardia improves with some fluid. 03/18 Heart rate continues to be elevated, did improve yesterday with a 500 mL bolus so ordered a 1 mL bolus today. Serum bicarbonate level trending up, will check a VBG. The patient has been on heated high flow nasal cannula most of the time. Appears comfortable. Transition to prednisone, discontinued IV Solu- Medrol. 03/19 No significant events overnight, weaned back to 3 L/min nasal cannula oxygen which is about the patient's baseline oxygen requirement. VBG shows persistently elevated carbon dioxide, will try BiPAP this afternoon for a few hours and see if the patient's energy levels improve with BiPAP. Also transition to BiPAP at night which the patient uses at home. Heart rate in the low 100s. 03/20 No significant events overnight, on 3 L nasal cannula oxygen supplementation. Tolerated BiPAP well last night. Transfer to [facility] status. Tentative plan to discharge to low intensity rehab tomorrow pending bed availability. 03/21 Stable overnight, transition to duo nebs today, discontinued scheduled Xopenex. We will see if the patient tolerates DuoNebs, she has been having some issues with that at home. Prior to admission, the patient was on scheduled DuoNebs and albuterol metered-dose inhaler as needed. Continue BiPAP at night and during the daytime as needed. Waiting for final authorization for low intensity rehab at [facility] bed. 03/22 Patient feeling a little bit better gradually. Does have a mild cough and feels shortness of breath is improving. Metabolic alkalosis improved after Diamox yesterday. 03/23 No overnight event or new complaints. Patient doing well and stable for discharge. A: #Acute on chronic hypoxic/hypercapnic respiratory failure: #COPD (3L O2@home) exacerbation with severe COPD at baseline: #Metabolic alkalosis: 2/2 above #Possible community-acquired pneumonia: #Recent influenza infection: #Sinus tachycardia: #GABRIELLE: on CPAP #GERD: #Stress urinary incontinence: #Generalized weakness/Deconditioning: #Guarded prognosis: Plan: -prednisone taper -referral to Pulmonology -ppx: Lovenox Discharge diagnosis: COPD exacerbation acute hypoxic respite failure pneumonia Secondary discharge diagnosis: Influenza metabolic alkalosis sinus tachycardia obstructive sleep apnea GERD generalized weakness deconditioning Time Spent with Patient Time attestation: Total time spent providing and/or coordinating discharge services: Time spent: Greater than 30 minutes EXAM Constitutional Vitals: Temp Pulse Resp BP Pulse Ox O2 Del Method O2 Flow Rate 98.6 F 102 H 20 101/52 98 3 03/21/22 12:00 03/21/22 12:00 03/21/22 12:00 03/21/22 12:00 03/21/22 15:00 03/21/22 15:00 03/21/22 15:00 Discharge Data Data Completed and Pending Labs on day of discharge: Labs from last 24 hours 03/21/22 05:24 Sodium 138 Potassium 4.0 Chloride 95 L Carbon Dioxide 42 H* Anion Gap 1.0 L BUN 22 Creatinine 0.4 L GFR Calculation 110 Glucose 85 Calcium 8.5 L Phosphorus 2.3 L Albumin 2.7 L Discharge Plan Patient/Caregiver Discharge Instructions Activity: increase activity as tolerated Diet: Regular Diet Activity Restrictions/Additional Instructions: Referral to see pulmonology in 1 to 2 weeks for COPD management. Follow-up with PCP in 3 to 7 days. Prescriptions: New prednisone 10 mg tablet 40 mg PO QDAY Qty: 1 0RF Rx Instructions: Take 40mg once daily for 2 days then 20mg daily for 2 days then 10mg daily x2 days then 5mg x2 days and stop Continued ipratropium-albuterol 0.5 mg-3 mg(2.5 mg base)/3 mL solution for nebulization 1 amp INHALATION QID budesonide 0.25 mg/2 mL suspension for nebulization 0.25 mg inhalation BID Label Comments: [NO ORIGINAL SIG] aspirin 81 mg tablet,chewable 1 tab PO QDAY hydroxyzine HCl 25 mg tablet 1 tab PO BIDP PRN (Reason: Anxiety) mirtazapine 15 mg tablet 1 tab PO HS albuterol sulfate 90 mcg/actuation HFA aerosol inhaler 2 puff INHALATION Q4HP PRN (Reason: dyspnea) oxybutynin chloride 5 mg tablet 1 tab PO TID Discontinued azithromycin 500 mg tablet 1 tab PO 3XW Rx Instructions: take on Mondays, Wednesdays, and Fridays Follow Up Plan Patient Disposition: Xfer SNF Prognosis: Fair Rehab Potential: Fair I certify that the patient requires SNF services: Yes Overall status at discharge: patient is progressing back to baseline Discharge Orders: Discharge Order (Routine); Ordered 03/23/22 Ordered By: Joseph Leo
[2022-03-21] MEDS: SENNOSIDES 1 TABLET PO SCH (20:53)
[2022-03-21] MEDS: hydrOXYzine 25 MG TABLET PO PRN (20:53)
[2022-03-21] MEDS: MIRTAZAPINE 15 MG TABLET PO SCH (20:53)
[2022-03-21] MEDS: ACETAMINOPHEN 325 MG TABLET PO PRN (20:56)
--- NOTE | 2022-03-21 20:58 | EKG ---
[facility] Test Date: 2022-03-16 Pat Name: Yane Segura Department: ICU Room: 120C Gender: Female Neighborhood Conservation Officer: : 1960 Requested By: Frank Robbins Order Number: [id number] Reading MD: Osei Ramirez Measurements Intervals [place] Rate: 139 P: 91 ND: 122 QRS: 50 QRSD: 88 T: -14 QT: 313 QTc: 476 Interpretive Statements Sinus tachycardia Abnormal R-wave progression, late transition Borderline repolarization abnormality Excessive artifact Electronically Signed On 03-21-2022 20:58:32 PST by Osei Ramirez /store/M0/[id number]/[id number]
[2022-03-22] MEDS: 0.9 % SODIUM CHLORIDE 10 ML SYRINGE IV SCH ×3 (05:43→21:54)
--- NOTE | 2022-03-22 07:41 | Internal Med Progress Note ---
SUBJECTIVE Subjective Patient information: Note initiated : 03/22/22 at 7:39 am Service Date, if different from initiated Date: [] Patient: aYne Segura 61 y/o F admitted on 03/15/22 for COPD Exacerbation. Chief Complaint: [] Interval history: 03/17 Respiratory status improved, the patient was on heated high flow nasal cannula overnight. Continues to have sinus tachycardia today, no cause of tachycardia identified. Low normal blood pressures so will give a IV fluid bolus to see if tachycardia improves with some fluid. 03/18 Heart rate continues to be elevated, did improve yesterday with a 500 mL bolus so ordered a 1 mL bolus today. Serum bicarbonate level trending up, will check a VBG. The patient has been on heated high flow nasal cannula most of the time. Appears comfortable. Transition to prednisone, discontinued IV Solu-Medrol. 03/19 No significant events overnight, weaned back to 3 L/min nasal cannula oxygen which is about the patient's baseline oxygen requirement. VBG shows persistently elevated carbon dioxide, will try BiPAP this afternoon for a few hours and see if the patient's energy levels improve with BiPAP. Also transition to BiPAP at night which the patient uses at home. Heart rate in the low 100s. 03/20 No significant events overnight, on 3 L nasal cannula oxygen supplementation. Tolerated BiPAP well last night. Transfer to [facility] status. Tentative plan to discharge to low intensity rehab tomorrow pending bed availability. 03/21 Stable overnight, transition to duo nebs today, discontinued scheduled Xopenex. We will see if the patient tolerates DuoNebs, she has been having some issues with that at home. Prior to admission, the patient was on scheduled DuoNebs and albuterol metered-dose inhaler as needed. Continue BiPAP at night and during the daytime as needed. Waiting for final authorization for low intensity rehab at [facility] bed. 03/22 Patient feeling a little bit better gradually. Does have a mild cough and feels shortness of breath is improving. Metabolic alkalosis improved after Diamox yesterday. Review of Systems: denies headache/fever/chills/nausea/vomiting/chest or abdominal pain/diarrhea. Otherwise see above. Constitutional Vitals: Vital Signs Temp Pulse Resp BP Pulse Ox O2 Del Method O2 Flow Rate 98.4 F 87 24 H 126/80 94 3 03/21/22 22:49 03/22/22 03:16 03/22/22 03:16 03/22/22 03:16 03/22/22 03:16 03/22/22 03:16 03/22/22 03:16 Period Temp Pulse Resp BP Sys/Pereira Pulse Ox O2 Del Method O2 Flow Rate Last 24 Hr 98.2 F-98.8 F 87-106 16-24 83-126/52-80 94-100 BiPAP-Nasal Cannula, CPAP 3-3.5 Intake and Output 03/21/22 03/22/22 03/22/22 19:59 03:59 11:59 Intake Total 600 425 Output Total 877 200 Balance -277 225 Weight 64.546 kg Intake & Output: Intake & Output 03/21/22 03/22/22 03/22/22 19:59 03:59 11:59 Intake Total 600 425 Output Total 877 200 Balance -277 225 Weight 64.546 kg Intake: Oral 600 425 Output: Void Amount 875 200 # of times incontinent of urine 2 Other: Meal Dinner Percent of Meal Consumed 50% Feeding Ability Independent Urine Appearance Clear Clear Urine Color Yellow Yellow Urine Odor Normal Stool Size Small Small Stool Color Brown Brown Stool Consistency Formed Formed # Bowel Movements 1 1 Exam: General: Alert, Awake, No acute Distress Eyes/N/T: EOMI, Head/Neck: neck supple, CV: RRR, No murmurs, Pulm: mild wheezing b/l, not labored Abd: soft, nontender, +BS x4 Ext: no clubbing/cyanosis/edema Neuro: Alert, no focal deficits, moves all extremities, Skin: warm/dry OBJ DATA Labs CBC & Chem 7: 03/17/22 07:38 03/22/22 06:16 Labs: Abnormal Lab Results 03/21/22 03/20/22 03/19/22 05:24 05:31 19:49 ABG Methemoglobin 0.2 L VBG pH 7.44 H VBG pCO2 62.0 H* VBG pO2 138.9 H VBG HCO3 40.8 H* VBG Total CO2 42.7 H* VBG O2 Saturation 93.3 H VBG Base Excess 14 H Carboxyhemoglobin 5.3 H Chloride 95 L 94 L Carbon Dioxide 42 H* 42 H* Anion Gap 1.0 L 2.0 L Creatinine 0.4 L 0.4 L Calcium 8.5 L 8.4 L Phosphorus 2.3 L 2.2 L Albumin 2.7 L 2.9 L 03/19/22 09:21 ABG Methemoglobin 0.3 L VBG pH VBG pCO2 65.0 H* VBG pO2 112.2 H VBG HCO3 40.6 H* VBG Total CO2 42.6 H* VBG O2 Saturation 91.7 H VBG Base Excess 13 H Carboxyhemoglobin 6.4 H Chloride Carbon Dioxide Anion Gap Creatinine Calcium Phosphorus Albumin Meds: Medications Acetaminophen (Acetaminophen 325 Mg Tablet) 650 mg PO Q6HP PRN; Protocol PRN Reason: Per Pain Protocol/Fever > 101 Last Admin: 03/21/22 20:56 Dose: 650 mg Albuterol Sulfate (Albuterol Sulfate 2.5 Mg/3 Ml Nebulizer) 2.5 mg NEB Q2HP PRN PRN Reason: Shortness Of Breath Or Wheezing Albuterol/Ipratropium (Ipratropium/Albuterol 3 Ml Ampul.Neb) 3 ml NEB QID [facility] Last Admin: 03/21/22 21:27 Dose: 3 ml Aspirin (Aspirin 81 Mg Tab.Chew) 81 mg PO DAILY [facility] Last Admin: 03/21/22 08:42 Dose: 81 mg Budesonide (Budesonide 0.5 Mg/2 Ml Ampul.Neb) 0.5 mg NEB Q12 [facility] Last Admin: 03/21/22 21:27 Dose: 0.5 mg Docusate Sodium (Docusate Sodium 100 Mg Capsule) 100 mg PO BID [facility] Last Admin: 03/21/22 20:53 Dose: 100 mg Enoxaparin Sodium (Enoxaparin 40 Mg/0.4 Ml Syringe) 40 mg SQ DAILY [facility] Last Admin: 03/21/22 08:42 Dose: 40 mg Hydromorphone HCl (Hydromorphone 0.5 Mg/0.5 Ml Syringe) 0.5 mg IV Q2HP PRN; Protocol PRN Reason: Per Pain Protocol Hydroxyzine HCl (Hydroxyzine 25 Mg Tablet) 25 mg PO BIDP PRN PRN Reason: Anxiety Last Admin: 03/21/22 20:53 Dose: 25 mg Lorazepam (Lorazepam 2 Mg/Ml Vial) 0.5 mg IV Q4HP PRN PRN Reason: ANXIETY/SEDATION Last Admin: 03/17/22 18:50 Dose: 0.5 mg Mirtazapine (Mirtazapine 15 Mg Tablet) 15 mg PO [facility] Last Admin: 03/21/22 20:53 Dose: 15 mg Ondansetron HCl (Ondansetron 4 Mg/2 Ml Vial) 4 mg IV Q6HP PRN PRN Reason: Nausea And Vomiting Last Admin: 03/17/22 18:44 Dose: 4 mg Oxybutynin Chloride (Oxybutynin Chloride 5 Mg Tablet) 5 mg PO TID [facility] Last Admin: 03/21/22 20:53 Dose: 5 mg Oxycodone HCl (Oxycodone Hcl 5 Mg Tablet) 5 mg PO Q4HP PRN; Protocol PRN Reason: Per Pain Protocol Last Admin: 03/17/22 20:59 Dose: 5 mg Pantoprazole Sodium (Pantoprazole 40 Mg Tablet) 40 mg PO [facility] Last Admin: 03/21/22 07:49 Dose: 40 mg Prednisone (Prednisone 20 Mg Tablet) 40 mg PO [facility] Last Admin: 03/21/22 08:42 Dose: 40 mg Senna (Sennosides 1 Tablet) 2 tab PO [facility] Last Admin: 03/21/22 20:53 Dose: 2 tab Sodium Chloride (0.9 % Sodium Chloride 10 Ml Syringe) 10 ml IV Q8 [facility] Last Admin: 03/22/22 05:43 Dose: Not Given Trazodone HCl (Trazodone Hcl 50 Mg Tablet) 50 mg PO [facility] PRN PRN Reason: Insomnia Last Admin: 03/20/22 20:25 Dose: 50 mg ABG Interpretation ABG results: 03/18/22 03/19/22 03/19/22 15:47 09:21 19:49 ABG Methemoglobin 0.4 0.3 L 0.2 L VBG pH 7.36 7.41 7.44 H VBG pCO2 68.9 H* 65.0 H* 62.0 H* VBG pO2 149.5 H 112.2 H 138.9 H VBG HCO3 38.1 H 40.6 H* 40.8 H* VBG Total CO2 40.3 H 42.6 H* 42.7 H* VBG O2 Saturation 93.9 H 91.7 H 93.3 H VBG Base Excess 10 H 13 H 14 H A/P Narrative A/P Narrative: A: #Acute on chronic hypoxic/hypercapnic respiratory failure: #COPD (3L O2@home) exacerbation with severe COPD at baseline: #Metabolic alkalosis: 2/2 above #Possible community-acquired pneumonia: #Recent influenza infection: #Sinus tachycardia: #GABRIELLE: on CPAP #GERD: #Stress urinary incontinence: #Generalized weakness/Deconditioning: #Guarded prognosis: Plan: -Continue prednisone 40 mg daily followed by taper -Start scheduled DuoNebs and discontinued scheduled Xopenex, Albuterol nebs as needed -cont budesonide nep, d/c with LABA and f/u referral to Pulmonology -Nasal cannula oxygen supplementation -BiPAP at nighttime and as needed during daytime -Completed antibiotics for possible CAP. -Completed Tamiflu treatment -Holding home azithromycin for now given recent antibiotic. -Ativan IV as needed for anxiety -Continue home aspirin, Remeron, oxybutynin. -safety representative, continuous pulse oximetry -PT and OT consult. -ppx: Lovenox CODE STATUS: Solar/Renewable Energy Sales Spent With Patient Time: Total time spent is greater than 50% in coordination of care (as documented) at patient's floor/unit and/or counseling patient: Total time spent with greater than 50% in coordination of care (as documented) at patient's floor/unit and/or counseling patient:: 35 - 50 minutes
[2022-03-22] MEDS: PANTOPRAZOLE 40 MG TABLET PO SCH (07:47)
[2022-03-22] MEDS: predniSONE 20 MG TABLET PO SCH (07:47)
[2022-03-22 08:02] LABS: ALT/SGPT 21 U/L (<40); AST/SGOT 20 U/L (<32); Albumin/Globulin Ratio 1.3 (1.0-2.3); Alkaline Phosphatase 56 U/L (39-117); Bilirubin,Direct < 0.2 mg/dL (0-0.3); Bilirubin,Total 0.3 mg/dL (0.1-1.0); Blood Urea Nitrogen 22 mg/dL (8-23); Calcium 8.6 mg/dL (8.6-10.4); Carbon Dioxide 35 mmol/L (22-30); Chloride 99 mmol/L (96-108); Globulin 2.4 gm/dL (2.2-3.7); Glomerular Filtration Rate 102; Glucose 87 mg/dL (70-105); Lactate Dehydrogenase 173 U/L (135-225); Phosphorous 2.9 mg/dL (2.5-4.5); Triglycerides 111 mg/dL (<150); Uric Acid 3.4 mg/dL (2.5-8.0)
[2022-03-22] MEDS: IPRATROPIUM/ALBUTEROL 3 ML AMPUL.NEB NEB SCH ×4 (08:08→19:27)
[2022-03-22] MEDS: BUDESONIDE 0.5 MG/2 ML AMPUL.NEB NEB SCH ×2 (08:08→19:27)
[2022-03-22] MEDS: OXYBUTYNIN CHLORIDE 5 MG TABLET PO SCH ×3 (08:53→21:53)
[2022-03-22] MEDS: ASPIRIN 81 MG TAB.CHEW PO SCH (08:53)
[2022-03-22] MEDS: DOCUSATE SODIUM 100 MG CAPSULE PO SCH ×2 (08:53→21:53)
[2022-03-22] MEDS: ENOXAPARIN 40 MG/0.4 ML SYRINGE SQ SCH (08:54)
[2022-03-22] MEDS: hydrOXYzine 25 MG TABLET PO PRN (11:38)
[2022-03-22] MEDS: SENNOSIDES 1 TABLET PO SCH (21:53)
[2022-03-22] MEDS: MIRTAZAPINE 15 MG TABLET PO SCH (21:53)
[2022-03-22] MEDS: ONDANSETRON 4 MG/2 ML VIAL IV PRN (23:44)
[2022-03-22] MEDS: traZODone HCL 50 MG TABLET PO PRN (23:44)
[2022-03-22] MEDS: ACETAMINOPHEN 325 MG TABLET PO PRN (23:44)
[2022-03-23] MEDS: 0.9 % SODIUM CHLORIDE 10 ML SYRINGE IV SCH (05:29)
[2022-03-23] MEDS: IPRATROPIUM/ALBUTEROL 3 ML AMPUL.NEB NEB SCH (08:19)
[2022-03-23] MEDS: BUDESONIDE 0.5 MG/2 ML AMPUL.NEB NEB SCH (08:19)
[2022-03-23] MEDS: predniSONE 20 MG TABLET PO SCH (09:04)
[2022-03-23] MEDS: DOCUSATE SODIUM 100 MG CAPSULE PO SCH (09:05)
[2022-03-23] MEDS: PANTOPRAZOLE 40 MG TABLET PO SCH (09:05)
[2022-03-23] MEDS: OXYBUTYNIN CHLORIDE 5 MG TABLET PO SCH (09:08)
[2022-03-23] MEDS: ASPIRIN 81 MG TAB.CHEW PO SCH (09:08)
[2022-03-23] MEDS: ENOXAPARIN 40 MG/0.4 ML SYRINGE SQ SCH (09:09)
== END 2022-03-23 11:16 | DRG 189 ==
LOC: ICU 23:29 → MEDSUR 03-20 12:57
PROVIDERS: ADMIT Internal Medicine; ATTEND Internal Medicine